=== PATIENT | male | born 1945 | race Asian ===

== ENCOUNTER 2020-07-01 14:53 | Outpatient (REF) | payer MEDICARE, MEDICAID, SELFPAY | END 2020-07-01 14:54 | disposition home or self-care (01) | LOC: HO.HAP 14:53 | DX: Z46.1 Encounter for fitting and adjustment of hearing aid (principal) | CPT/HCPCS: 92593; 99499; V5266 ==

== ENCOUNTER 2021-05-20 15:43 | Outpatient (REF) | payer MEDICARE, MEDICAID, SELFPAY | END 2021-05-20 15:44 | disposition home or self-care (01) | LOC: HO.HAP 15:43 | PROVIDERS: Visit Provider Hospitalist | DX: Z46.1 Encounter for fitting and adjustment of hearing aid (principal); H90.3 Sensorineural hearing loss, bilateral | CPT/HCPCS: 92593; V5266 ==

== ENCOUNTER 2021-07-08 15:10 | Outpatient (REF) | payer MEDICARE, MEDICAID, SELFPAY ==
--- NOTE | 2021-07-08 16:57 | MHC.AU.AHA ---
Adult Audiological Evaluation Date of Visit: 07/08/21 Reason for Appointment: Audiological evaluation due to concern for decreased hearing. Mr. Salguero has a known bilateral, sensorineural hearing loss and uses hearing aids binaurally. He feels he's not hearing well with the hearing aids. He denies any significant changes to his medical history since his last visit. Previous Hearing Test Results: [facility] [place], 06/28/2017 - Mild sloping to severe sensorineural hearing loss bilaterally. 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 Worker: PhonEnval Model: Easel Learneo B50 Direct Serial Number: [id number] Battery Size: 13 Repair Warranty: 09/27/2019 Loss and Damage Warranty: 09/27/2019 Dispensed By: [facility] Date of Fittin07/06/2017 Hearing Instrument History- Left Ear: Maintenance And Repair Worker: Phonak Model: Easel Learneo B50 Direct Serial Number: [id number] Battery Size: 13 Warranty: 09/27/2019 Loss and Damage Warranty: 09/27/2019 Dispensed By: [facility] Date of Fittin07/06/2017 Otoscopy: Right Ear: Unremarkable Left Ear: Unremarkable Tympanometry: Tympanometry performed due to: To assess integrity of the middle ear system Right Ear: Normal Middle Ear System (Type A) Left Ear: Hypercompliant Middle Ear System (Type Ad) Hearing Evaluation: Transducer(s) Used: Insert Earphones, Bone Conduction Method: Conventional Audiometry Stimuli Used: Pure Tones Right Ear: Description of Hearing: Moderate sloping to severe sensorineural hearing loss from 250-8000 Hz. Left Ear: Description of Hearing: Moderate sloping to profound sensorineural hearing loss from 250-8000 Hz. Speech Recognition Threshold (SRT): Method Used: Monitored Live Voice Stimuli Used: Spondee Words Right Ear: 55 dBHL Left Ear: 50 dBHL Word Discrimination: Method: Recorded Lists Word Lists Used: PBK Right Ear: 84% at 90 dBHL Left Ear: 84% at 90 dBHL Comparison: Compared to the most recent evaluation: Thresholds have decreased bilaterally. Compared to most recent evaluation: 10-15 dBHL decrease in hearing from 250-4000 Hz bilaterally. Recommendations: Audiological re-evaluation in one year. Hearing aid(s) reprogrammed with updated test results. Diagnosis: Primary Diagnosis: H90.3 Bilateral Sensorineural Hearing Loss Services Performed: Comprehensive Audiological Evaluation (CPT 84513) Tympanometry (CPT 39756) Signature: Provider: Anabella Evans, CCC-A
== END 2021-07-08 15:11 | disposition home or self-care (01) ==
LOC: HO.SH 15:10
PROVIDERS: Visit Provider Hospitalist
DX: Z46.1 Encounter for fitting and adjustment of hearing aid (principal); H90.3 Sensorineural hearing loss, bilateral
CPT/HCPCS: 92557; 92567; V5014

== ENCOUNTER 2021-12-30 13:15 | Outpatient (REF) | payer MEDICARE, MEDICAID, SELFPAY | END 2021-12-30 13:16 | disposition home or self-care (01) | LOC: HO.HAP 13:15 | PROVIDERS: Visit Provider Hospitalist | DX: Z46.1 Encounter for fitting and adjustment of hearing aid (principal); H90.3 Sensorineural hearing loss, bilateral | CPT/HCPCS: V5266 ==

== ENCOUNTER 2022-06-23 14:14 | Outpatient (REF) | payer MEDICARE, MEDICAID, SELFPAY | END 2022-06-23 14:15 | disposition home or self-care (01) | LOC: HO.HAP 14:14 | PROVIDERS: Visit Provider Internal Medicine | DX: Z46.1 Encounter for fitting and adjustment of hearing aid (principal); H90.3 Sensorineural hearing loss, bilateral | CPT/HCPCS: V5266 ==

== ENCOUNTER 2022-09-16 14:52 | Outpatient (REF) | payer MEDICARE, MEDICAID, SELFPAY ==
--- NOTE | 2022-09-16 16:41 | MHC.AU.MED ---
Medical Clearance for Hearing Instrumentation Date: 09/16/22 Patient Name: Cynthia Salgeuro Date of : 1945 Primary Care Provider: José Miguel Cadet MD We have seen your patient on 09/16/22 and have determined that they are a candidate for amplification (See accompanying report). Specifically, they would benefit from: Hearing aid use in both ears There is a statute that addresses Medical Evaluation Requirements prior to fitting a patient with a hearing aid. According to [place] statute 265 CMR:6.03(1), (a) General. Except as provided in 265 CMR 6.03(1)(b), a landscape gardener shall not sell a hearing aid unless the prospective user has presented to the landscape gardener a written statement signed by a licensed physician that states that the patient's hearing loss has been medically evaluated and the patient may be considered a candidate for a hearing aid. The medical evaluation must have taken place within the preceding six months. Please note: Due to the [place] Statute referenced above, we cannot accept a signature other than that of a licensed physician. QUALITATIVE FIELD PROJECT MANAGER and PA signatures cannot be accepted. I am in agreement with the above recommendation. There is no medical contraindication for hearing instrumentation. Physician Signature Date Physician Name (Printed)
--- NOTE | 2022-09-20 12:50 | MHC.AU.HA3 ---
Hearing Instrument Follow-Up- Binaural Date of Visit: 09/16/22 Right Ear: Orestes, , Color, Serial Number: Chip Ornelas [id number] SN: [id number] Color: White Upper Trimmer Repair Warranty: 09/27/2019 Upper Trimmer Loss and Damage Warranty: 09/27/2019 Battery Size: 13 Core Machine Operator/Slim Tube: 3xP Earmold/Dome/CShell/SlimTip:Medium power dome Type of Wax Guard: CeruStop Dispensed By: [facility] Date of Fittin07/06/2017 Left Ear: Orestes, , Color, Serial Number: Chip Parker0-Direct [id number] Color: White Upper Trimmer Repair Warranty: 09/27/2019 Upper Trimmer Loss and Damage Warranty: 09/27/2019 Battery Size: 13 Core Machine Operator/Slim Tube: 3xP Earmold/Dome/CShell/SlimTip: Medium power dome Type of Wax Guard: CeruStop Dispensed By: [facility] Date of Fittin07/06/2017 Follow-Up Summary: Dmitriy returned for routine hearing aid maintenance. His hearing aids were cleaned, microphones were vacuumed, and domes and wax guards were replaced. A listening check demonstrated that the hearing aids are in good working order. Recommendations: Hearing instrument maintenance in 6 months, or sooner if needed. Recommendations (Other): Consider trial with upgraded hearing aid technology due to age of current pair (see Hearing Aid Evaluation report) Diagnosis Code(s): Primary Diagnosis: H90.3 Bilateral Sensorineural Hearing Loss Signature: Provider: Thomas Cervantes, [facility]
--- NOTE | 2022-09-20 13:03 | MHC.AU.HA1 ---
Hearing Aid Evaluation Date of Visit: 09/16/22 Historical Information:Description of Hearing: Moderately-severe to profound sensorineural hearing loss, bilaterally Current personal amplification information: Phonak Audeo N17-Ywijen fit in June 2017 Summary: Dmitriy is ready to upgrade his hearing aid technology due to the age of his current pair. He has recently been wearing his hearing aids inconsistently due to a reported whistling from both hearing aids. He also does not successfully insert the hearing aids every time, often twisting the wire. Dmitriy reported that the sound quality has diminished and he feels as though the hearing aids are not working as optimally as they previously did. Dmitriy opted to stay with the RITE style hearing aid but in the rechargeable version. He was agreeable to adding a c-shell due to the severity of his hearing loss and to help with feedback and ease of insertion. Hearing Aid Prescription: Based on the individual?s shared listening needs, communication environments, dexterity, desire for connectivity, and personal preferences, the following prescription for amplification has been made: Right ear: Make, Model, Color: Phonak Audeo L70-R Color: Silver Worthy Battery Size: Rechargeable Personal Protection Specialist/Slim Tube: 3P Type of Earmold/Dome/CShell/SlimTip: c-shell Left ear: Left ear prescription to be same as Right Hearing Aid above: Make, Model, Color: Phonak Audeo L70-R Color: Silver Worthy Battery Size: Rechargeable Personal Protection Specialist/Slim Tube: 3P Type of Earmold/Dome/CShell/SlimTip: c-shell Plan of Care: Patient wishes to purchase hearing aids as prescribed Action Taken/Action Needed: Earmold Impressions Taken. Medical Clearance to be requested from PCP/ENT. Hearing Instrument Fitting to be scheduled when materials arrive Primary Diagnosis: H90.3 Bilateral Sensorineural Hearing Loss Signature: Provider: Thomas Cervantes, [facility]
== END 2022-09-16 14:53 | disposition home or self-care (01) ==
LOC: HO.SH 14:52
PROVIDERS: Visit Provider Hospitalist
DX: H90.3 Sensorineural hearing loss, bilateral (principal)
CPT/HCPCS: 92557; 92567; 92591; 92593; 99499; V5275

== ENCOUNTER 2022-11-09 14:25 | Outpatient (REF) | payer MEDICARE, MEDICAID, SELFPAY ==
--- NOTE | 2022-11-09 15:53 | MHC.AU.HA2 ---
Hearing Instrument Fitting- Adult- Binaural Date of Visit: 11/09/22 Hearing Instruments Dispensed: Right Ear: Orestes, Model, Color, Serial Number: Chip Ornelas L70-R SN: [id number] Color: Silver Worthy Commercial Fisher Repair Warranty: 01/22/2026 Commercial Fisher Loss and Damage Warranty: 01/22/2026 [facility] Service Plan: 11/10/2023 Battery Size: Rechargeable Flexible Shaft Winder/Slim Tube: 3P Earmold/Dome/CShell/SlimTip: c-shell Type of Wax Guard: CeruStop Left Ear: Orestes, Model, Color, Serial Number: Chip Ornelas L70-R SN: [id number] Color: Silver Worthy Commercial Fisher Repair Warranty: 01/22/2026 Commercial Fisher Loss and Damage Warranty: 01/22/2026 [facility] Service Plan: 11/10/2023 Battery Size: Rechargeable Flexible Shaft Winder/Slim Tube: 3P Earmold/Dome/CShell/SlimTip: c-shell Type of Wax Guard: CeruStop Accessories/Assistive Technology: Sheet Combining Operator SN: [id number] Summary of Fitting: Performed feedback trading manager and real ear measurements. Comfortable at real ear settings. Reviewed care, use, and rechargeability including manually turning on/off, volume control use, and changing wax guard. Practiced insertion and removal. Some difficulty fully inserting molds but will continue to practice. Instructed son on proper insertion depth by observing the green meat packer wire flush against the head as well as removal line at base of michael into canal. Did not connect to cell phone at this time as son reported he can help pair at home if Juliet wants the bluetooth connection. Recommendations: Patient does not feel follow-up is necessary at this time. Hearing Instrument maintenance in 6 months, or sooner if needed. Please call our clinic with any questions or concerns. Diagnosis Code(s): Primary Diagnosis: H90.3 Bilateral Sensorineural Hearing Loss Signature: Provider: Thomas Cervantes, [facility]
== END 2022-11-09 14:26 | disposition home or self-care (01) ==
LOC: HO.HAP 14:25
PROVIDERS: Visit Provider Hospitalist
DX: Z46.1 Encounter for fitting and adjustment of hearing aid (principal); H90.3 Sensorineural hearing loss, bilateral
CPT/HCPCS: V5011; V5020; V5160; V5261; V5264

== ENCOUNTER 2023-03-14 14:44 | Outpatient (REF) | payer MEDICARE, MEDICAID, SELFPAY | END 2023-03-14 14:45 | disposition home or self-care (01) | LOC: HO.HAP 14:44 | PROVIDERS: Visit Provider Hospitalist | DX: Z13.89 Encounter for screening for other disorder (principal) ==

== ENCOUNTER 2023-03-15 14:48 | Outpatient (REF) | payer MEDICARE, MEDICAID, SELFPAY | END 2023-03-15 14:49 | disposition home or self-care (01) | LOC: HO.HAP 14:48 | PROVIDERS: Visit Provider Hospitalist | DX: Z13.89 Encounter for screening for other disorder (principal) ==

== ENCOUNTER 2023-11-01 14:56 | Outpatient (REF) | payer MEDICARE, MEDICAID, SELFPAY | END 2023-11-01 14:57 | disposition home or self-care (01) | LOC: HO.HAP 14:56 | PROVIDERS: Visit Provider Hospitalist | DX: Z13.89 Encounter for screening for other disorder (principal) ==

== ENCOUNTER 2023-11-02 13:49 | Outpatient (REF) | payer MEDICARE, MEDICAID, SELFPAY | END 2023-11-02 13:50 | disposition home or self-care (01) | LOC: HO.HAP 13:49 | PROVIDERS: Visit Provider Hospitalist | DX: Z13.89 Encounter for screening for other disorder (principal) ==

== ENCOUNTER 2024-02-05 13:53 | Outpatient (REF) | payer MEDICARE, MEDICAID, SELFPAY ==
--- NOTE | 2024-02-06 10:46 | MHC.AU.HA3 ---
Hearing Instrument Follow-Up- Binaural Date of Visit: 02/06/24 Right Ear: Orestes, Model, Color, Serial Number: Chip Ornelas L70-R SN: [id number] Color: Silver Worthy Automotive Glass Installer Repair Warranty: 01/22/2026 Automotive Glass Installer Loss and Damage Warranty: 01/22/2026 [facility] Service Plan: 11/10/2023 Battery Size: Rechargeable Consumer Insights Specialist/Slim Tube: 3P Earmold/Dome/CShell/SlimTip:c-shell Type of Wax Guard: CeruStop Dispensed By: [facility] Date of Fittin11/09/2022 Left Ear: Orestes, Model, Color, Serial Number: Chip Ornelas L70-R SN: [id number] Color: Silver Worthy Automotive Glass Installer Repair Warranty: 01/22/2026 Automotive Glass Installer Loss and Damage Warranty: 01/22/2026 [facility] Service Plan: 11/10/2023 Battery Size: Rechargeable Consumer Insights Specialist/Slim Tube: 3P Earmold/Dome/CShell/SlimTip: c-shell Type of Wax Guard: CeruStop Dispensed By: [facility] Date of Fittin11/09/2022 Follow-Up Summary: Both hearing aids and c-shells dropped off 02/05/2024 reporting static/distorted. Initial listening check demonstrated hearing aids amplifying clearly. Wax guards slightly occluded with vents fully occluded. Cleaned hearing aids and c-shells. Replaced wax guards. Vacuumed microphones. Ran through dehumidifier. No static/distortion noted. Recommendations: If issue persists, an appointment should be scheduled to readdress Cynthia's concerns. Diagnosis Code(s): Primary Diagnosis: H90.3 Bilateral Sensorineural Hearing Loss Signature: Provider: Thomas Cervantes, [facility]
== END 2024-02-05 13:54 | disposition home or self-care (01) ==
LOC: HO.HAP 13:53
PROVIDERS: Visit Provider Hospitalist
DX: Z13.89 Encounter for screening for other disorder (principal)

== ENCOUNTER 2024-02-06 14:35 | Outpatient (REF) | payer MEDICARE, MEDICAID, SELFPAY | END 2024-02-06 14:36 | disposition home or self-care (01) | LOC: HO.HAP 14:35 | PROVIDERS: Visit Provider Hospitalist | DX: Z46.1 Encounter for fitting and adjustment of hearing aid (principal); H90.3 Sensorineural hearing loss, bilateral | CPT/HCPCS: 92593; 99499 ==

== ENCOUNTER 2024-04-01 11:23 | Outpatient (REF) | payer MEDICARE, MEDICAID, SELFPAY ==
--- NOTE | 2024-04-02 12:34 | MHC.AU.HA3 ---
Hearing Instrument Follow-Up- Binaural Date of Visit: 04/01/24 Right Ear: Orestes, Model, Color, Serial Number: Chip Ornelas L70-R SN: [id number] Color: Silver Worthy Tank Officer Repair Warranty: 01/22/2026 Tank Officer Loss and Damage Warranty: 01/22/2026 [facility] Service Plan: 11/10/2023 Battery Size: Rechargeable Ethnographer/Slim Tube: 3P Earmold/Dome/CShell/SlimTip:c-shell Type of Wax Guard: CeruStop Dispensed By: [facility] Date of Fittin11/09/2022 Left Ear: Orestes, Model, Color, Serial Number: Chip Ornelas L70-R SN: [id number] Color: Silver Worthy Tank Officer Repair Warranty: 01/22/2026 Tank Officer Loss and Damage Warranty: 01/22/2026 [facility] Service Plan: 11/10/2023 Battery Size: Rechargeable Ethnographer/Slim Tube: 3P Earmold/Dome/CShell/SlimTip: c-shell Type of Wax Guard: CeruStop Dispensed By: [facility] Date of Fittin11/09/2022 Follow-Up Summary: Aids dropped off, . Found wax guards clogged. Cleaned aids, cleaned earmolds, replaced wax guards. Listening check positive after cleaning. Recommendations: Recommendations: Hearing instrument follow-up or maintenance as needed. Diagnosis Code(s): Primary Diagnosis: H90.3 Bilateral Sensorineural Hearing Loss Signature: Provider: Thomas Weaver, [facility]
== END 2024-04-01 11:24 | disposition home or self-care (01) ==
LOC: HO.HAP 11:23
PROVIDERS: Visit Provider Hospitalist
DX: Z13.89 Encounter for screening for other disorder (principal)

== ENCOUNTER 2024-04-02 14:30 | Outpatient (REF) | payer MEDICARE, MEDICAID, SELFPAY | END 2024-04-02 14:31 | disposition home or self-care (01) | LOC: HO.HAP 14:30 | PROVIDERS: Visit Provider Hospitalist | DX: Z46.1 Encounter for fitting and adjustment of hearing aid (principal); H90.3 Sensorineural hearing loss, bilateral | CPT/HCPCS: 92593; 99499 ==

== ENCOUNTER 2024-08-20 08:48 | Outpatient (REF) | payer MEDICARE, MEDICAID, SELFPAY ==
--- OUTSIDE RECORDS SUMMARY | 2024-08-20 08:54 | XMS_ITS | Patient Health Record ---
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 Role Phone NOE WEST Primary Care Provider [phone] Minal Barclay Unavailable [phone] Allergies No Known Allergies Results Component Value Reference Range Notes HEMOGLOBIN A1C Reviewed date:10/22/2023 04:23:54 PM Interpretation: Performing Lab:Testing performed or reported by [facility], a Service of [facility], [address] [place] [id number] Raad Anand MD, Assistant Wrestling Coach [facility]# [id number] Notes/Report: HEMOGLOBIN A1C 6.5 (4.0-5.6) % MONITORING: In known diabetic patients, hemoglobin A1c targets should be discussed with health care provider. DIAGNOSTIC USE: The [place] Diabetes Association (ADA) and the World Health Organization (WHO) recommend the use of HbA1c to diagnose diabetes using a threshold of 6.5%. Patients who have an HbA1c between 5.7% and 6.4% are considered at increased risk for developing diabetes in the future. CAUTION: Falsely low HbA1c results may be observed in patients with hemolytic anemia, homozygous forms of abnormal hemoglobin (e.g. SS, CC, SC), , recent blood loss or hemoglobin F greater than 7%. Fructosamine may be used as an alternate test in these cases. REFERENCE: ADA: Standards of Medical Care in Diabetes 2020, The Journal of Clinical and Applied Research and Education Volume 43, Supplement 1 QUANTIFERON 1 TUBE Reviewed date:10/19/2023 01:02:32 PM Interpretation: Performing Lab:Testing performed or reported by [facility], a Service of [facility], [address] [place] [id number] Raad Anand MD, Assistant Wrestling Coach CLIA# [id number] Notes/Report: QTB GOLD PLUS RESULT TEST NOT PERFORMED Test not performed,quantity insufficient (NOTE) TEST NOT PERFORMED = Quantity not sufficient. Reason For Referral No Information Medications Medication SIG (Take, Route, Frequency, Duration) Notes Start Date End Date Status Lisinopril 20 MG TAKE 1 TABLET BY MOUTH EVERY DAY for 90 days Active Colace 100 MG 1 capsule as needed Orally Once a day for 30 day(s) 05/20/2020 Active Albuterol Sulfate HFA 108 (90 Base) MCG/ACT INHALE 1 PUFF BY MOUTH EVERY 4 HOURS NEEDED for 30 Active amLODIPine Besylate 5 MG TAKE 1 TABLET B Y MOUTH EVERY DAY for 90 Active Mirtazapine 15 MG TAKE 1 TABLET BY MOUTH EVERY DAY AT BEDTIME FOR 30 DAYS for 90 Active Trelegy Ellipta 100-62.5-25 MCG/ACT 1 puff Inhalation Once a day for 30 days sample given 10/10/2023 Active Linzess 145 MCG TAKE 1 CAPSULE BY MOUTH AT LEAST 30 MINUTES BEFORE THE FIRST MEAL OF THE DAY ON AN EMPTY STOMACH for 30 Active Atorvastatin Calcium 80 MG 1 tablet Orally Once a day for 90 days Active amLODIPine Besylate 2.5 MG TAKE 1 TABLET BY MOUTH EVERY DAY for 90 Active Pantoprazole Sodium 40 MG TAKE 1 TABLET BY MOUTH TWICE A DAY for 90 Active Immunizations Vaccine Route Administration Date Status Comme nts COVID Unknown 09/29/2020 Administered 1st pfizer COVID Unknown 10/20/2020 Administered 2nd pfizer DTaP IM Intramuscular 05/07/2024 Administered Flublok 13949 IM Intramuscular 05/07/2024 Administered Problems Problem Type SNOMED Code ICD Code Onset Dates Problem Status W/U Status Risk Notes Problem Mixed hyperlipidemia (461329541) Mixed hyperlipidemia (E78.2) Active confirmed Problem Insomnia (335012090) Insomnia, unspecified (G47.00) Active confirmed Problem Conductive hearing loss (86522943) Conductive hearing loss, unspecified (H90.2) Active confirmed Problem Hearing loss (25835753) Unspecified hearing loss, unspecified ear (H91.90) Active confirmed Problem Essential hypertension (48182279) Essential (primary) hypertension (I10) Active confirmed Problem Chronic obstructive pulmonary disease (04349415) Chronic obstructive pulmonary disease, unspecified (J44.9) Active confirmed Problem Gastro-esophageal reflux disease without esophagitis (232452064) Gastro-esophageal reflux disease without esophagitis (K21.9) Active confirmed Problem Constipation (00325486) Constipation, unspecified (K59.00) Active confirmed Problem Nicotine dependence (52107160) Personal history of nicotine dependence (Z87.891) Active confirmed Vital Signs Heart Rate 67 /min 05/07/2024 Temperature 98.1 degrees Fahrenheit 05/07/2024 Blood pressure diastolic 80 mm Hg 05/07/2024 Oximetry 96 % 05/07/2024 Height 5'11 in 05/07/2024 Blood pressure systolic 134 mm Hg 05/07/2024 Weight 140.6 lbs 05/07/2024 BMI 19.61 kg/m2 05/07/2024 Encounters Encounter Location Date Provider Diagnosis [address] [address] 10/10/2023 NOE WEST Essential (primary) hypertension I10 ; Mixed hyperlipidemia E78.2 ; Chronic obstructive pulmonary disease, unspecified J44.9 and Impaired fasting glucose R73.[address] [address] 10/24/2023 NOE WEST Essential (primary) hypertension I10 ; Chronic obstructive pulmonary disease, unspecified J44.9 ; Mixed hyperlipidemia E78.2 ; Gastro-esophageal reflux disease without esophagitis K21.9 and Constipation, unspecified K59.[address] [address] 05/07/2024 Minal Barclay Encounter for genera l adult medical examination without abnormal findings Z00.00 ; Essential (primary) hypertension I10 ; Mixed hyperlipidemia E78.2 ; Chronic obstructive pulmonary disease, unspecified J44.9 ; Impaired fasting blood sugar R73.01 ; Fatigue, unspecified type R53.83 ; Encounter for screening for malignant neoplasm of prostate Z12.5 ; Encounter for screening for osteoporosis Z13.820 ; Insomnia, unspecified G47.00 and Encounter for immunization Z23 [address] [address] 10/02/2023 LIU GUL [address] [address] 10/13/2023 NOE WEST Contact with and (suspected) exposure to tuberculosis Z20.1 [facility] [address] [facility] [address] [place] [address] 10/19/2023 NOE WEST Contact with and (suspected) exposure to tuberculosis Z20.1 [facility] [address] [facility] [address] [place] [address] 05/08/2024 NOE CARPENTER Assessments Encounter Date Diagnosis (ICD Code) Assessment Notes Treatment Notes Treatment Clinical Notes Section Notes 10/10/2023 Mixed hyperlipidemia (ICD-10 - E78.2) Mr. Salguero is a 78-year-old gentleman with COPD and ex-smoker, acid reflux, hypertension here for for follow up. Plan is as follows: Hypertension. his blood pressure is high today and he also checks his blood pressure at home which is running high. He will continue on lisinopril 20 mg daily and amlodipine 5 mg daily and we added amlodipine 2.5 mg. Low-sodium diet recommended and follow-up in 2 weeks for blood pressure check Hyperlipidemia. Continue Atorvastatin 80 MG at night. GERD. Continue Pantoprazole 40 MG daily. COPD. He will stop Breo Ellipta inhaler for now. We will give him a trial of Trelegy Ellipta inhaler and observe. Continue Albuterol inhaler as needed. Impaired fasting glucose. Fasting sugars 116. Dietary restrictions, regimental exercise and weight loss advised. General health concerns discussed with patient. Scribe services used to formulate this note under HIPAA compliance and under [place] law mandated for scribe services. Patient aware of service. Verbal consent and written consent taken from the patient. Patient understands and verbalizes understanding of the scribes services and all questions answered regarding scribes services. Patient agrees to use of scribes services. 10/10/2023 Essential (primary) hypertension (ICD-10 - I10) Mr. Salguero is a 78-year-old gentleman with COPD and ex-smoker, acid reflux, hypertension here for for follow up. Plan is as follows: Hypertension. his blood pressure is high today and he also checks his blood pressure at home which is running high. He will continue on lisinopril 20 mg daily and amlodipine 5 mg daily and we added amlodipine 2.5 mg. Low-sodium diet recommended and follow-up in 2 weeks for blood pressure check Hyperlipidemia. Continue Atorvastatin 80 MG at night. GERD. Continue Pantoprazole 40 MG daily. COPD. He will stop Breo Ellipta inhaler for now. We will give him a trial of Trelegy Ellipta inhaler and observe. Continue Albuterol inhaler as needed. Impaired fasting glucose. Fasting sugars 116. Dietary restrictions, regimental exercise and weight loss advised. General health concerns discussed with patient. Scribe services used to formulate this note under HIPAA compliance and under [place] law mandated for scribe services. Patient aware of service. Verbal consent and written consent taken from the patient. Patient understands and verbalizes understanding of the scribes services and all questions answered regarding scribes services. Patient agrees to use of scribes services. 10/24/2023 Essential (primary) hypertension (ICD-10 - I10) Mr. Salguero is a 78-year-old gentleman with COPD and ex-smoker, acid reflux, hypertension here for for follow up. Plan is as follows: Hypertension. Blood pressure well controlled on current regimen. He will continue on lisinopril 20 mg daily and amlodipine 5 mg and 2.5 mg total 7.5 mg daily. Low-sodium diet recommended. Hyperlipidemia. Continue Atorvastatin 80 MG at night. GERD. Continue Pantoprazole 40 MG daily. COPD. We gave him a sample of Trelegy Ellipta 100/62.5 mg 1 puff daily i and observe. Continue Albuterol inhaler as needed. Constipation. Start Linzess 145 MCG once a day. General health concerns discussed with patient. Scribe services used to formulate this note under HIPAA compliance and under [place] law mandated for scribe services. Patient aware of service. Verbal consent and written consent taken from the patient. Patient understands and verbalizes understanding of the scribes services and all questions answered regarding scribes services. Patient agrees to use of scribes services. 10/24/2023 Chronic obstructive pulmonary disease, unspecified (ICD-10 - J44.9) Mr. Salguero is a 78-year-old gentleman with COPD and ex-smoker, acid reflux, hypertension here for for follow up. Plan is as follows: Hypertension. Blood pressure well controlled on current regimen. He will continue on lisinopril 20 mg daily and amlodipine 5 mg and 2.5 mg total 7.5 mg daily. Low-sodium diet recommended. Hyperlipidemia. Continue Atorvastatin 80 MG at night. GERD. Continue Pantoprazole 40 MG daily. COPD. We gave him a sample of Trelegy Ellipta 100/62.5 mg 1 puff daily i and observe. Continue Albuterol inhaler as needed. Constipation. Start Linzess 145 MCG once a day. General health concerns discussed with patient. Scribe services used to formulate this note under HIPAA compliance and under [place] law mandated for scribe services. Patient aware of service. Verbal consent and written consent taken from the patient. Patient understands and verbalizes understanding of the scribes services and all questions answered regarding scribes services. Patient agrees to use of scribes services. 10/13/2023 Contact with and (suspected) exposure to tuberculosis (ICD-10 - Z20.1) 10/19/2023 Contact with and (suspected) exposure to tuberculosis (ICD-10 - Z20.1) 05/07/2024 Encounter for general adult medical examination without abnormal findings (ICD-10 - Z00.00) Mr. Salguero is a 78-year-old gentleman with COPD and former smoker, acid reflux, hypertension here for annual physical examination. Plan is as follows: Hypertension. -Blood pressure well controlled on current regimen. He will continue on lisinopril 20 mg daily and amlodipine 5 mg and 2.5 mg total 7.5 mg daily. Low-sodium diet recommended. - EKG is done in the office today, HR 67, NSR. No ST elevation/depres shoaib. No BBB Hyperlipidemia. -Continue Atorvastatin 80 MG at night. check lipid panel -GERD. -Continue Pantoprazole 40 MG daily. COPD. -Continue on Trelegy Ellipta 100/62.5 mg 1 puff daily i and observe. Continue Albuterol inhaler as needed. Constipation. -Continue on Linzess 145 MCG once a day Impaired fasting glucose: - A1c of 6.5. Advised on diet modification and exercising. Check a1c Fatigue: - He has been feeling fatigued for the past couple of months. We will check CBC, iron studies, TSH, vitamin D, B12 and folate. Insomnia: - He has trouble initiating and maintain sleep. Started patient on low dose Mirtazapine. PHQ-9 of 7 due to feeling fatigued and trouble with sleep. Screening for prostate cancer: - Ordered PSA Screening for Osteoporosis - DEXA Vision: Regular Hearing: Has hearing aids. Had his annual CT scan done Flu and TDAP shot are given today. Recommended Pneumo vax and RSV HCP is his son Joshua Olivera phone number is [phone], MOLST form is provided I have rendered the services for this patient under direct supervision of Dr. West, who did not see the patient but was available upon request 05/07/2024 Essential (primary) hypertension (ICD-10 - I10) Mr. Salguero is a 78-year-old gentleman with COPD and former smoker, acid reflux, hypertension here for annual physical examination. Plan is as follows: Hypertension. -Blood pressure well controlled on current regimen. He will continue on lisinopril 20 mg daily and amlodipine 5 mg and 2.5 mg total 7.5 mg daily. Low-sodium diet recommended. - EKG is done in the office today, HR 67, NSR. No ST elevation/depres shoaib. No BBB Hyperlipidemia. -Continue Atorvastatin 80 MG at night. check lipid panel -GERD. -Continue Pantoprazole 40 MG daily. COPD. -Continue on Trelegy Ellipta 100/62.5 mg 1 puff daily i and observe. Continue Albuterol inhaler as needed. Constipation. -Continue on Linzess 145 MCG once a day Impaired fasting glucose: - A1c of 6.5. Advised on diet modification and exercising. Check a1c Fatigue: - He has been feeling fatigued for the past couple of months. We will check CBC, iron studies, TSH, vitamin D, B12 and folate. Insomnia: - He has trouble initiating and maintain sleep. Started patient on low dose Mirtazapine. PHQ-9 of 7 due to feeling fatigued and trouble with sleep. Screening for prostate cancer: - Ordered PSA Screening for Osteoporosis - DEXA Vision: Regular Hearing: Has hearing aids. Had his annual CT scan done Flu and TDAP shot are given today. Recommended Pneumo vax and RSV HCP is his son Joshua Olivera phone number is [phone], MOLST form is provided I have rendered the services for this patient under direct supervision of Dr. West, who did not see the patient but was available upon request 10/24/2023 Mixed hyperlipidemia (ICD-10 - E78.2) Mr. Salguero is a 78-year-old gentleman with COPD and ex-smoker, acid reflux, hypertension here for for follow up. Plan is as follows: Hypertension. Blood pressure well controlled on current regimen. He will continue on lisinopril 20 mg daily and amlodipine 5 mg and 2.5 mg total 7.5 mg daily. Low-sodium diet recommended. Hyperlipidemia. Continue Atorvastatin 80 MG at night. GERD. Continue Pantoprazole 40 MG daily. COPD. We gave him a sample of Trelegy Ellipta 100/62.5 mg 1 puff daily i and observe. Continue Albuterol inhaler as needed. Constipation. Start Linzess 145 MCG once a day. General health concerns discussed with patient. Scribe services used to formulate this note under HIPAA compliance and under [place] law mandated for scribe services. Patient aware of service. Verbal consent and written consent taken from the patient. Patient understands and verbalizes understanding of the scribes services and all questions answered regarding scribes services. Patient agrees to use of scribes services. 10/10/2023 Chronic obstructive pulmonary disease, unspecified (ICD-10 - J44.9) Mr. Salguero is a 78-year-old gentleman with COPD and ex-smoker, acid reflux, hypertension here for for follow up. Plan is as follows: Hypertension. his blood pressure is high today and he also checks his blood pressure at home which is running high. He will continue on lisinopril 20 mg daily and amlodipine 5 mg daily and we added amlodipine 2.5 mg. Low-sodium diet recommended and follow-up in 2 weeks for blood pressure check Hyperlipidemia. Continue Atorvastatin 80 MG at night. GERD. Continue Pantoprazole 40 MG daily. COPD. He will stop Breo Ellipta inhaler for now. We will give him a trial of Trelegy Ellipta inhaler and observe. Continue Albuterol inhaler as needed. Impaired fasting glucose. Fasting sugars 116. Dietary restrictions, regimental exercise and weight loss advised. General health concerns discussed with patient. Scribe services used to formulate this note under HIPAA compliance and under [place] law mandated for scribe services. Patient aware of service. Verbal consent and written consent taken from the patient. Patient understands and verbalizes understanding of the scribes services and all questions answered regarding scribes services. Patient agrees to use of scribes services. 10/10/2023 Impaired fasting glucose (ICD-10 - R73.01) Mr. Salguero is a 78-year-old gentleman with COPD and ex-smoker, acid reflux, hypertension here for for follow up. Plan is as follows: Hypertension. his blood pressure is high today and he also checks his blood pressure at home which is running high. He will continue on lisinopril 20 mg daily and amlodipine 5 mg daily and we added amlodipine 2.5 mg. Low-sodium diet recommended and follow-up in 2 weeks for blood pressure check Hyperlipidemia. Continue Atorvastatin 80 MG at night. GERD. Continue Pantoprazole 40 MG daily. COPD. He will stop Breo Ellipta inhaler for now. We will give him a trial of Trelegy Ellipta inhaler and observe. Continue Albuterol inhaler as needed. Impaired fasting glucose. Fasting sugars 116. Dietary restrictions, regimental exercise and weight loss advised. General health concerns discussed with patient. Scribe services used to formulate this note under HIPAA compliance and under [place] law mandated for scribe services. Patient aware of service. Verbal consent and written consent taken from the patient. Patient understands and verbalizes understanding of the scribes services and all questions answered regarding scribes services. Patient agrees to use of scribes services. 05/07/2024 Mixed hyperlipidemia (ICD-10 - E78.2) Mr. Salguero is a 78-year-old gentleman with COPD and former smoker, acid reflux, hypertension here for annual physical examination. Plan is as follows: Hypertension. -Blood pressure well controlled on current regimen. He will continue on lisinopril 20 mg daily and amlodipine 5 mg and 2.5 mg total 7.5 mg daily. Low-sodium diet recommended. - EKG is done in the office today, HR 67, NSR. No ST elevation/depres shoaib. No BBB Hyperlipidemia. -Continue Atorvastatin 80 MG at night. check lipid panel -GERD. -Continue Pantoprazole 40 MG daily. COPD. -Continue on Trelegy Ellipta 100/62.5 mg 1 puff daily i and observe. Continue Albuterol inhaler as needed. Constipation. -Continue on Linzess 145 MCG once a day Impaired fasting glucose: - A1c of 6.5. Advised on diet modification and exercising. Check a1c Fatigue: - He has been feeling fatigued for the past couple of months. We will check CBC, iron studies, TSH, vitamin D, B12 and folate. Insomnia: - He has trouble initiating and maintain sleep. Started patient on low dose Mirtazapine. PHQ-9 of 7 due to feeling fatigued and trouble with sleep. Screening for prostate cancer: - Ordered PSA Screening for Osteoporosis - DEXA Vision: Regular Hearing: Has hearing aids. Had his annual CT scan done Flu and TDAP shot are given today. Recommended Pneumo vax and RSV HCP is his son Joshua Olivera phone number is [phone], MOLST form is provided I have rendered the services for this patient under direct supervision of Dr. West, who did not see the patient but was available upon request 10/24/2023 Gastro-esophageal reflux disease without esophagitis (ICD-10 - K21.9) Mr. Salguero is a 78-year-old gentleman with COPD and ex-smoker, acid reflux, hypertension here for for follow up. Plan is as follows: Hypertension. Blood pressure well controlled on current regimen. He will continue on lisinopril 20 mg daily and amlodipine 5 mg and 2.5 mg total 7.5 mg daily. Low-sodium diet recommended. Hyperlipidemia. Continue Atorvastatin 80 MG at night. GERD. Continue Pantoprazole 40 MG daily. COPD. We gave him a sample of Trelegy Ellipta 100/62.5 mg 1 puff daily i and observe. Continue Albuterol inhaler as needed. Constipation. Start Linzess 145 MCG once a day. General health concerns discussed with patient. Scribe services used to formulate this note under HIPAA compliance and under [place] law mandated for scribe services. Patient aware of service. Verbal consent and written consent taken from the patient. Patient understands and verbalizes understanding of the scribes services and all questions answered regarding scribes services. Patient agrees to use of scribes services. 05/07/2024 Chronic obstructive pulmonary disease, unspecified (ICD-10 - J44.9) Mr. Salguero is a 78-year-old gentleman with COPD and former smoker, acid reflux, hypertension here for annual physical examination. Plan is as follows: Hypertension. -Blood pressure well controlled on current regimen. He will continue on lisinopril 20 mg daily and amlodipine 5 mg and 2.5 mg total 7.5 mg daily. Low-sodium diet recommended. - EKG is done in the office today, HR 67, NSR. No ST elevation/depres shoaib. No BBB Hyperlipidemia. -Continue Atorvastatin 80 MG at night. check lipid panel -GERD. -Continue Pantoprazole 40 MG daily. COPD. -Continue on Trelegy Ellipta 100/62.5 mg 1 puff daily i and observe. Continue Albuterol inhaler as needed. Constipation. -Continue on Linzess 145 MCG once a day Impaired fasting glucose: - A1c of 6.5. Advised on diet modification and exercising. Check a1c Fatigue: - He has been feeling fatigued for the past couple of months. We will check CBC, iron studies, TSH, vitamin D, B12 and folate. Insomnia: - He has trouble initiating and maintain sleep. Started patient on low dose Mirtazapine. PHQ-9 of 7 due to feeling fatigued and trouble with sleep. Screening for prostate cancer: - Ordered PSA Screening for Osteoporosis - DEXA Vision: Regular Hearing: Has hearing aids. Had his annual CT scan done Flu and TDAP shot are given today. Recommended Pneumo vax and RSV HCP is his son Joshua Olivera phone number is [phone], MOLST form is provided I have rendered the services for this patient under direct supervision of Dr. West, who did not see the patient but was available upon request 10/24/2023 Constipation, unspecified (ICD-10 - K59.00) Mr. Salguero is a 78-year-old gentleman with COPD and ex-smoker, acid reflux, hypertension here for for follow up. Plan is as follows: Hypertension. Blood pressure well controlled on current regimen. He will continue on lisinopril 20 mg daily and amlodipine 5 mg and 2.5 mg total 7.5 mg daily. Low-sodium diet recommended. Hyperlipidemia. Continue Atorvastatin 80 MG at night. GERD. Continue Pantoprazole 40 MG daily. COPD. We gave him a sample of Trelegy Ellipta 100/62.5 mg 1 puff daily i and observe. Continue Albuterol inhaler as needed. Constipation. Start Linzess 145 MCG once a day. General health concerns discussed with patient. Scribe services used to formulate this note under HIPAA compliance and under [place] law mandated for scribe services. Patient aware of service. Verbal consent and written consent taken from the patient. Patient understands and verbalizes understanding of the scribes services and all questions answered regarding scribes services. Patient agrees to use of scribes services. 05/07/2024 Impaired fasting blood sugar (ICD-10 - R73.01) Mr. Salguero is a 78-year-old gentleman with COPD and former smoker, acid reflux, hypertension here for annual physical examination. Plan is as follows: Hypertension. -Blood pressure well controlled on current regimen. He will continue on lisinopril 20 mg daily and amlodipine 5 mg and 2.5 mg total 7.5 mg daily. Low-sodium diet recommended. - EKG is done in the office today, HR 67, NSR. No ST elevation/depres shoaib. No BBB Hyperlipidemia. -Continue Atorvastatin 80 MG at night. check lipid panel -GERD. -Continue Pantoprazole 40 MG daily. COPD. -Continue on Trelegy Ellipta 100/62.5 mg 1 puff daily i and observe. Continue Albuterol inhaler as needed. Constipation. -Continue on Linzess 145 MCG once a day Impaired fasting glucose: - A1c of 6.5. Advised on diet modification and exercising. Check a1c Fatigue: - He has been feeling fatigued for the past couple of months. We will check CBC, iron studies, TSH, vitamin D, B12 and folate. Insomnia: - He has trouble initiating and maintain sleep. Started patient on low dose Mirtazapine. PHQ-9 of 7 due to feeling fatigued and trouble with sleep. Screening for prostate cancer: - Ordered PSA Screening for Osteoporosis - DEXA Vision: Regular Hearing: Has hearing aids. Had his annual CT scan done Flu and TDAP shot are given today. Recommended Pneumo vax and RSV HCP is his son Joshua Olivera phone number is [phone], MOLST form is provided I have rendered the services for this patient under direct supervision of Dr. West, who did not see the patient but was available upon request 05/07/2024 Fatigue, unspecified type (ICD-10 - R53.83) Mr. Salguero is a 78-year-old gentleman with COPD and former smoker, acid reflux, hypertension here for annual physical examination. Plan is as follows: Hypertension. -Blood pressure well controlled on current regimen. He will continue on lisinopril 20 mg daily and amlodipine 5 mg and 2.5 mg total 7.5 mg daily. Low-sodium diet recommended. - EKG is done in the office today, HR 67, NSR. No ST elevation/depres shoaib. No BBB Hyperlipidemia. -Continue Atorvastatin 80 MG at night. check lipid panel -GERD. -Continue Pantoprazole 40 MG daily. COPD. -Continue on Trelegy Ellipta 100/62.5 mg 1 puff daily i and observe. Continue Albuterol inhaler as needed. Constipation. -Continue on Linzess 145 MCG once a day Impaired fasting glucose: - A1c of 6.5. Advised on diet modification and exercising. Check a1c Fatigue: - He has been feeling fatigued for the past couple of months. We will check CBC, iron studies, TSH, vitamin D, B12 and folate. Insomnia: - He has trouble initiating and maintain sleep. Started patient on low dose Mirtazapine. PHQ-9 of 7 due to feeling fatigued and trouble with sleep. Screening for prostate cancer: - Ordered PSA Screening for Osteoporosis - DEXA Vision: Regular Hearing: Has hearing aids. Had his annual CT scan done Flu and TDAP shot are given today. Recommended Pneumo vax and RSV HCP is his son Joshua Olivera phone number is [phone], MOLST form is provided I have rendered the services for this patient under direct supervision of Dr. West, who did not see the patient but was available upon request 05/07/2024 Encounter for screening for malignant neoplasm of prostate (ICD-10 - Z12.5) Mr. Salguero is a 78-year-old gentleman with COPD and former smoker, acid reflux, hypertension here for annual physical examination. Plan is as follows: Hypertension. -Blood pressure well controlled on current regimen. He will continue on lisinopril 20 mg daily and amlodipine 5 mg and 2.5 mg total 7.5 mg daily. Low-sodium diet recommended. - EKG is done in the office today, HR 67, NSR. No ST elevation/depres shoaib. No BBB Hyperlipidemia. -Continue Atorvastatin 80 MG at night. check lipid panel -GERD. -Continue Pantoprazole 40 MG daily. COPD. -Continue on Trelegy Ellipta 100/62.5 mg 1 puff daily i and observe. Continue Albuterol inhaler as needed. Constipation. -Continue on Linzess 145 MCG once a day Impaired fasting glucose: - A1c of 6.5. Advised on diet modification and exercising. Check a1c Fatigue: - He has been feeling fatigued for the past couple of months. We will check CBC, iron studies, TSH, vitamin D, B12 and folate. Insomnia: - He has trouble initiating and maintain sleep. Started patient on low dose Mirtazapine. PHQ-9 of 7 due to feeling fatigued and trouble with sleep. Screening for prostate cancer: - Ordered PSA Screening for Osteoporosis - DEXA Vision: Regular Hearing: Has hearing aids. Had his annual CT scan done Flu and TDAP shot are given today. Recommended Pneumo vax and RSV HCP is his son Joshua Olivera phone number is [phone], MOLST form is provided I have rendered the services for this patient under direct supervision of Dr. West, who did not see the patient but was available upon request 05/07/2024 Encounter for screening for osteoporosis (ICD-10 - Z13.820) Mr. Salguero is a 78-year-old gentleman with COPD and former smoker, acid reflux, hypertension here for annual physical examination. Plan is as follows: Hypertension. -Blood pressure well controlled on current regimen. He will continue on lisinopril 20 mg daily and amlodipine 5 mg and 2.5 mg total 7.5 mg daily. Low-sodium diet recommended. - EKG is done in the office today, HR 67, NSR. No ST elevation/depres shoaib. No BBB Hyperlipidemia. -Continue Atorvastatin 80 MG at night. check lipid panel -GERD. -Continue Pantoprazole 40 MG daily. COPD. -Continue on Trelegy Ellipta 100/62.5 mg 1 puff daily i and observe. Continue Albuterol inhaler as needed. Constipation. -Continue on Linzess 145 MCG once a day Impaired fasting glucose: - A1c of 6.5. Advised on diet modification and exercising. Check a1c Fatigue: - He has been feeling fatigued for the past couple of months. We will check CBC, iron studies, TSH, vitamin D, B12 and folate. Insomnia: - He has trouble initiating and maintain sleep. Started patient on low dose Mirtazapine. PHQ-9 of 7 due to feeling fatigued and trouble with sleep. Screening for prostate cancer: - Ordered PSA Screening for Osteoporosis - DEXA Vision: Regular Hearing: Has hearing aids. Had his annual CT scan done Flu and TDAP shot are given today. Recommended Pneumo vax and RSV HCP is his son Joshua Olivera phone number is [phone], MOLST form is provided I have rendered the services for this patient under direct supervision of Dr. West, who did not see the patient but was available upon request 05/07/2024 Insomnia, unspecified (ICD-10 - G47.00) Mr. Salguero is a 78-year-old gentleman with COPD and former smoker, acid reflux, hypertension here for annual physical examination. Plan is as follows: Hypertension. -Blood pressure well controlled on current regimen. He will continue on lisinopril 20 mg daily and amlodipine 5 mg and 2.5 mg total 7.5 mg daily. Low-sodium diet recommended. - EKG is done in the office today, HR 67, NSR. No ST elevation/depres shoaib. No BBB Hyperlipidemia. -Continue Atorvastatin 80 MG at night. check lipid panel -GERD. -Continue Pantoprazole 40 MG daily. COPD. -Continue on Trelegy Ellipta 100/62.5 mg 1 puff daily i and observe. Continue Albuterol inhaler as needed. Constipation. -Continue on Linzess 145 MCG once a day Impaired fasting glucose: - A1c of 6.5. Advised on diet modification and exercising. Check a1c Fatigue: - He has been feeling fatigued for the past couple of months. We will check CBC, iron studies, TSH, vitamin D, B12 and folate. Insomnia: - He has trouble initiating and maintain sleep. Started patient on low dose Mirtazapine. PHQ-9 of 7 due to feeling fatigued and trouble with sleep. Screening for prostate cancer: - Ordered PSA Screening for Osteoporosis - DEXA Vision: Regular Hearing: Has hearing aids. Had his annual CT scan done Flu and TDAP shot are given today. Recommended Pneumo vax and RSV HCP is his son Joshua Olivera phone number is [phone], MOLST form is provided I have rendered the services for this patient under direct supervision of Dr. West, who did not see the patient but was available upon request 05/07/2024 Encounter for immunization (ICD-10 - Z23) Mr. Salguero is a 78-year-old gentleman with COPD and former smoker, acid reflux, hypertension here for annual physical examination. Plan is as follows: Hypertension. -Blood pressure well controlled on current regimen. He will continue on lisinopril 20 mg daily and amlodipine 5 mg and 2.5 mg total 7.5 mg daily. Low-sodium diet recommended. - EKG is done in the office today, HR 67, NSR. No ST elevation/depres shoaib. No BBB Hyperlipidemia. -Continue Atorvastatin 80 MG at night. check lipid panel -GERD. -Continue Pantoprazole 40 MG daily. COPD. -Continue on Trelegy Ellipta 100/62.5 mg 1 puff daily i and observe. Continue Albuterol inhaler as needed. Constipation. -Continue on Linzess 145 MCG once a day Impaired fasting glucose: - A1c of 6.5. Advised on diet modification and exercising. Check a1c Fatigue: - He has been feeling fatigued for the past couple of months. We will check CBC, iron studies, TSH, vitamin D, B12 and folate. Insomnia: - He has trouble initiating and maintain sleep. Started patient on low dose Mirtazapine. PHQ-9 of 7 due to feeling fatigued and trouble with sleep. Screening for prostate cancer: - Ordered PSA Screening for Osteoporosis - DEXA Vision: Regular Hearing: Has hearing aids. Had his annual CT scan done Flu and TDAP shot are given today. Recommended Pneumo vax and RSV HCP is his son Joshua Olivera phone number is [phone], MOLST form is provided I have rendered the services for this patient under direct supervision of Dr. West, who did not see the patient but was available upon request Plan Of Treatment Pending Test Test Name Order Date DEXA 05/07/2024 CBC (COMPLETE BLOOD COUNT) WITH DIFF COMPREHENSIVE METABOLIC PANEL 04/07/2022 HEMOGLOBIN A1C 04/13/2023 LDH 04/07/2022 MAGNESIUM 04/07/2022 TSH WITH REFLEX TO FT4 04/07/2022 QUANTIFERON TB GOLD PLUS 10/19/2023 Vitamin B12 and Folate-[id number] 05/07/2024 Iron and TIBC-003723 05/07/2024 Hemoglobin J4x-[id number] 05/07/2024 Ferritin-[id number] 05/07/2024 Vitamin D, 78-Nlcjqfg-[id number] 05/07/2024 CBC/Differential (No Platelet)-[id number] Albumin/Creatinine Ratio,Urine-372520 Lipid Panel-[id number] 05/07/2024 Comp. Metabolic Panel [phone] PSA (Reflex To Free) (Serial)-[id number] Methylmalonic Acid, Serum-116321 024 Homocyst(e)ine-833583 05/07/2024 TSH+Free T4 05/07/2024 Next Appt Details Provider Name:LIU Susana JAYDENShaheen , 11/04/2024 01:00:00 PM, [address] [place] [address], [id number], Insurance Providers Payer Name Payer Address Payer Phone Subscriber Number Group Number Insured Name Patient Relationship to Insured Coverage Start Date Coverage End Date Medicare [address] [place] [id number] Noe Salguero Self - patient is the insured [employer] of [place] [address] [place] [phone] [id number] Noe Salguero Self - patient is the insured Medical (General) History Medical History History ICD Code glaucoma hypertension, benign hypercholesterolemia acid reflux asthma
--- OUTSIDE RECORDS SUMMARY | 2024-08-20 08:54 | XMS_ITS ---
Author Organization [facility] Address [address] [place] [address] [address] [facility] [place] [id number] Care Team Providers Care Frame Coverer Name Role Phone NOE WEST Primary Care Provider [phone] Allergies No Known Allergies REASON FOR VISIT 2 week BP Check Medications Medication SIG (Take, Route, Frequency, Duration) Notes Start Date End Date Status amLODIPine Besylate 5 MG TAKE 1 TABLET B Y MOUTH EVERY DAY for 90 Active Trelegy Ellipta 100-62.5-25 MCG/ACT 1 puff Inhalation Once a day for 30 days sample given 10/10/2023 Active Lisinopril 20 MG TAKE 1 TABLET BY MOUTH EVERY DAY for 90 Active Pantoprazole Sodium 40 MG TAKE 1 TABLET BY MOUTH TWICE A DAY for 90 Active Linzess 145 MCG TAKE 1 CAPSULE BY MOUTH AT LEAST 30 MINUTES BEFORE THE FIRST MEAL OF THE DAY ON AN EMPTY STOMACH for 30 Active Colace 100 MG 1 capsule as needed Orally Once a day for 30 day(s) 05/20/2020 Active Albuterol Sulfate HFA 108 (90 Base) MCG/ACT INHALE 1 PUFF BY MOUTH EVERY 4 HOURS NEEDED for 30 Active Atorvastatin Calcium 80 MG 1 tablet Orally Once a day for 90 days Active amLODIPine Besylate 2.5 MG TAKE 1 TABLET BY MOUTH EVERY DAY for 90 Active Vital Signs Temperature 97.1 degrees Fahrenheit 10/24/19 24 Oximetry 97 % 10/24/2023 Heart Rate 74 /min 10/24/2023 Blood pressure systolic 130 mm Hg 10/24/19 24 Blood pressure diastolic 60 mm Hg 024 Weight 138.4 lbs 10/24/2023 BMI 19.3 kg/m2 10/24/2023 Height 5'11 in 10/24/2023 Encounters Encounter Location Date Provider Diagnosis [facility] [address] [place] [address] 10/24/2023 NOE WEST Essential (primary) hypertension I10 ; Chronic obstructive pulmonary disease, unspecified J44.9 ; Mixed hyperlipidemia E78.2 ; Gastro-esophageal reflux disease without esophagitis K21.9 and Constipation, unspecified K59.00 Assessments Encounter Date Diagnosis (ICD Code) Assessment Notes Treatment Notes Treatment Clinical Notes Section Notes 10/24/2023 Essential (primary) hypertension (ICD-10 - I10) Mr. Méndez is a 78-year-old gentleman with COPD and [...] this note under HIPAA compliance and under [place] law mandated for scribe services. Patient aware of service. Verbal consent and written consent taken from the patient. Patient understands and verbalizes understanding of the scribes services and all questions answered regarding scribes services. Patient agrees to use of scribes services. 10/24/2023 Chronic obstructive pulmonary disease, unspecified (ICD-10 - J44.9) Mr. Méndez is a 78-year-old gentleman with COPD and [...] this note under HIPAA compliance and under [place] law mandated for scribe services. Patient aware of service. Verbal consent and written consent taken from the patient. Patient understands and verbalizes understanding of the scribes services and all questions answered regarding scribes services. Patient agrees to use of scribes services. 10/24/2023 Mixed hyperlipidemia (ICD-10 - E78.2) Mr. Méndez is a 78-year-old gentleman with COPD and [...] this note under HIPAA compliance and under [place] law mandated for scribe services. Patient aware of service. Verbal consent and written consent taken from the patient. Patient understands and verbalizes understanding of the scribes services and all questions answered regarding scribes services. Patient agrees to use of scribes services. 10/24/2023 Gastro-esophageal reflux disease without esophagitis (ICD-10 - K21.9) Mr. Méndez is a 78-year-old gentleman with COPD and [...] this note under HIPAA compliance and under [place] law mandated for scribe services. Patient aware of service. Verbal consent and written consent taken from the patient. Patient understands and verbalizes understanding of the scribes services and all questions answered regarding scribes services. Patient agrees to use of scribes services. 10/24/2023 Constipation, unspecified (ICD-10 - K59.00) Mr. Méndez is a 78-year-old gentleman with COPD and [...] this note under HIPAA compliance and under [place] law mandated for scribe services. Patient aware of service. Verbal consent and written consent taken from the patient. Patient understands and verbalizes understanding of the scribes services and all questions answered regarding scribes services. Patient agrees to use of scribes services. Plan Of Treatment Medication Medication Name Sig Start Date Stop Date Notes Pantoprazole Sodium 40 MG TAKE 1 TABLET BY MOUTH TWICE A DAY for 90 Linzess 145 MCG TAKE 1 CAPSULE BY [facility] AT LEAST 30 MINUTES BEFORE THE FIRST MEAL OF THE DAY ON AN EMPTY STOMACH for 30 Next Appt Details Follow Up: 6 Months, Reason: Provider Name:NOE WEST , 11/04/2024 01:00:00 PM, [address] [place] [address], [phone], Progress Notes * HONEY, MuTitaOB: [birth year] (78 yo M)Acc No.[id number]:10/24/2023 Progress Notes Patient:?Noe MÉNDEZ Provider:?NOE WEST MD :1945???Age:78 Y???Sex:Male Jori e:10/24/2023 Address: [id number] Subjective: * Chief Complaints: * ???2 week BP Check * HPI: ???Internal Medicine:? Mr. Méndez is a 78-year-old gentleman with COPD and ex-smoker, acid reflux, hypertension here for for follow up. He is physically active as much as possible. He lost 2 lbs since last visit. No history of fall. He does not need help with ADLs and IADLs. He sleeps well, appetite is good. No symptoms. He complains of constipation. He denies any other active issues or concerns. * ROS:?General/Constitutional:?Overall health?Good.?Change in appetite?denies.?Chills?denies.?Fever?denies.?Night sweats?denies.?Sleep disturbance?denies.?Weight gain?denies.?Weight loss?denies.?Neurologic:?Difficulty speaking?denies.?Dizziness?denies.?Gait abnormality?denies.?Headache?denies.?Loss of strength?denies.?Memory loss?denies.?Seizures?denies.?Tingling/Numbness?denies ?.?Ophthalmologic:?Blurred vision?denies.?Discharge?denies.?Dry eye?denies.?Red eye?denies.?ENT:?Change in Voice?Denies.?Cold Symptoms?Denies.?Cough?Denies.?Dizziness?Denies.?Nasal Congestion?Denies.?Otalgia?Denies.?postnasal drip?Denies.?Blocked ear?denies.?Nosebleed?denies.?Snoring?denies.?Cardiovascular:?Diaphoresis?Denies.?Pedal Edema?Denies.?PND (Paroxsymal nocturnal dyspnea)?Denies.?Chest pain?denies.?Difficulty laying flat?denies.?Dyspnea on exertion?denies.?Heart murmur?denies.?Orthopnea?denies.?Respiratory:?Snoring?denies.?Asthma?denies.?Cough?denies.?Shortness of breath with exertion?denies.?Sputum production?denies.?Wheezing?denies.?Gastrointestinal:?Change in bowel habits?denies.?Constipation?,admits.?Decreased appetite?denies.?Diarrhea?denies.?Heartburn?denies.?Nausea?denies.?Vomiting?mark es.?Musculoskeletal:?tingling/numbness?Denies.?myalgias?Denies.?Joint Swelling?Denies.?extremeties?normal.?Arthritis?denies.?Back problems?denies.?Carpal tunnel?denies.?Joint stiffness?denies.?Muscle aches?denies.?Endocrine:?Bowel Changes?Denies.?Breast Discharge?Denies.?poor libido?Denies.?Cold intolerance?denies.?Excessive sweating?denies.?Excessive thirst?denies.?Frequent urination?denies.?Thyroid problems?denies.?Skin:?Bruising?Denies.?Eczema?denies.?Hair changes?denies.?Rash?denies.?Skin lesion(s)?denies.?Psychiatric:?Anxiety?denies.?Depressed mood?denies.?Difficulty sleeping?denies.?Nervous breakdown?denies.?Substance abuse?denies.?Urology:?abnormal menstrual bleeding?denies.?blood in urine?denies.?burning on urination?denies.?difficulty urinating?denies.?discharge?denies.?dysuria?denies.? * Medical History:? * Surgical History:?Denies Pas t Surgical History * Hospitalization/Major Diagno stic Procedure:?Denies Past Hospitalization * Family History:?Non-Contribu tory.? * Social History:?Miscellaneous:?Exercise: Patient exercises. ?Living with: family. ?Marital status: . ?Occupation: Retired. * Medications:?TakingamLODIPin e Besylate 2.5 MG Tablet TAKE 1 TABLET BY MOUTH EVERY DAY Colace 100 MG Capsule 1 capsule as needed Orally Once a day Linzess 145 MCG Capsule TAKE 1 CAPSULE BY MOUTH AT LEAST 30 MINUTES BEFORE THE FIRST MEAL OF THE DAY ON AN EMPTY STOMACH Albuterol Sulfate HFA 108 (90 Base) MCG/ACT Aerosol Solution INHALE 1 PUFF BY MOUTH EVERY 4 HOURS NEEDED Atorvastatin Calcium 80 MG Tablet 1 tablet Orally Once a day Lisinopril 20 MG Tablet TAKE 1 TABLET BY MOUTH EVERY DAY Pantoprazole Sodium 40 MG Tablet Delayed Release TAKE 1 TABLET BY MOUTH TWICE A DAY amLODIPine Besylate 5 MG Tablet TAKE 1 TABLET BY MOUTH EVERY DAY Trelegy Ellipta 100-62.5-25 MCG/ACT Aerosol Powder Breath Activated 1 puff Inhalation Once a day , Notes to Pharmacist: sample givenTaking amLODIPine Besylate 2.5 MG Tablet TAKE 1 TABLET BY MOUTH EVERY DAY Taking Colace 100 MG Capsule 1 capsule as needed Orally Once a day Taking Linzess 145 MCG Capsule TAKE 1 CAPSULE BY MOUTH AT LEAST 30 MINUTES BEFORE THE FIRST MEAL OF THE DAY ON AN EMPTY STOMACH Taking Albuterol Sulfate HFA 108 (90 Base) MCG/ACT Aerosol Solution INHALE 1 PUFF BY MOUTH EVERY 4 HOURS NEEDED Taking Atorvastatin Calcium 80 MG Tablet 1 tablet Orally Once a day Taking Lisinopril 20 MG Tablet TAKE 1 TABLET BY MOUTH EVERY DAY Taking Pantoprazole Sodium 40 MG Tablet Delayed Release TAKE 1 TABLET BY MOUTH TWICE A DAY Taking amLODIPine Besylate 5 MG Tablet TAKE 1 TABLET BY MOUTH EVERY DAY Taking Trelegy Ellipta 100-62.5-25 MCG/ACT Aerosol Powder Breath Activated 1 puff Inhalation Once a day , Notes to Pharmacist: sample givenDiscontinuedAzithromycin 250 MG Tablet as directed Orally 2 tablets on the first day, then 1 tablet daily Albuterol Sulfate HFA 108 (90 Base) MCG/ACT Aerosol Solution 1 puff as needed Inhalation every 6 hrs Medication List reviewed and reconciled with the patientDiscontinued Azithromycin 250 MG Tablet as directed Orally 2 tablets on the first day, then 1 tablet daily Discontinued Albuterol Sulfate HFA 108 (90 Base) MCG/ACT Aerosol Solution 1 puff as needed Inhalation every 6 hrs Medication List reviewed and reconciled with the patient * Allergies:?N.K.D.A.no[Allerg ies Verified] Objective: * Vitals:?Temp: 97.1 F, Oxygen sat %: 97 %, HR: 74 /min, BP: 138/58 mm Hg, 130/60 mm Hg, Wt: 138.4 lbs, BMI: 19.3 Index, Ht: 5'11 . * Examination: ???General Examination: ?Psychiatry?Normal.?GENERAL APPEARANCE:?Well developed, well nourished, in no acute distress.?MUSCULOSKELETAL:?Normal.?HEAD:?Normocephalic, atraumatic.?EYES:?Pupils equal, round, reactive to light and accommodation, sclera non-icteric.?EARS:?Normal.?ORAL CAVITY:?Normal.?THROAT:?Clear.?OROPHARYNX?Normal.?SINUSES?Normal.?NECK/THYROID:?Neck supple, full range of motion, no cervical lymphadenopathy.?SKIN:?Warm and dry, no suspicious lesions.?HEART:?Normal.?LUNGS:?Normal.?BREASTS:?__.?ABDOMEN:?Soft, nontender, nondistended, bowel sounds present, normal.?EXTREMITIES:?Normal.?PERIPHERAL PULSES:?Normal.?NEUROLOGIC:?Nonfocal,? appropriate?motor strength normal upper and lower extremities, sensory exam intact.?FEMALE GENITOURINARY:?__.?MALE GENITOURINARY:?__.?PODIATRIC:?Normal.?Operations Chief? .? Assessment: * Assessment: 1.?Essential (primary) hyper tension - I10 (Primary)?2.?Chronic obstructive pulmonary disease, unspecified - J44.9?3.?Mixed hyperlipidemia - E78.2?4.?Gastro- esophageal reflux disease without esophagitis - K21.9?5.?Constipation, unspecified - K59.00? Mr. Méndez is a 78-year-old gentleman with COPD and ex-smoker, acid reflux, hypertension here for for follow up. Plan is as follows: Hypertension. Blood pressure well controlled on current regimen. He will continue on lisinopril 20 mg daily and amlodipine 5 mg and 2.5 mg total 7.5 mg daily. Low- sodium diet recommended. Hyperlipidemia. Continue Atorvastatin 80 MG at night. GERD. Continue Pantoprazole 40 MG daily. COPD. We gave him a sample of Trelegy Ellipta 100/62.5 mg 1 puff daily i and observe. Continue Albuterol inhaler as needed. Constipation. Start Linzess 145 MCG once a day. General health concerns discussed with patient. Scribe services used to formulate this note under HIPAA compliance and under [place] law mandated for scribe services. Patient aware of service. Verbal consent and written consent taken from the patient. Patient understands and verbalizes understanding of the scribes services and all questions answered regarding scribes services. Patient agrees to use of scribes services. Plan: * Treatment: * Procedure Codes:? * Follow Up:?6 Months * Images: * Sign off status: Completed true * Provider:?NOE WEST MD Date:?10/23 Generated for Shanel louis/Hermelinda/Nubia on:?08/20/2024 08:54 AM EST History and Physical Notes * HPI (History of Present Illness) Category Sub-Category Detail Notes Category Not es Internal Medicine Mr. Jaclyn perez is a 78-year-old gentleman with COPD and ex-smoker, acid reflux, hypertension here for for follow up. He is physically active as much as possible. He lost 2 lbs since last visit. No history of fall. He does not need help with ADLs and IADLs. He sleeps well, appetite is good. No symptoms. He complains of constipation. He denies any other active issues or concerns. Examination Category Sub-Category Detail Notes Category Not es General Examination GENERAL APPEARANCE: Well dev eloped, well nourished, in no acute distress HEAD: Normocephalic, atrau matic EYES: Pupils equal, round, reactive to light and accommodation, sclera non-icteric EARS: Normal THROAT: Clear NECK/THYROID: Neck supple, full ra nge of motion, no cervical lymphadenopathy HEART: Normal LUNGS: Normal ABDOMEN: Soft, nontender, non distended, bowel sounds present, normal NEUROLOGIC: Nonfocal, appropriat e motor strength normal upper and lower extremities, sensory exam intact SKIN: Warm and dry, no carlie picious lesions EXTREMITIES: Normal PERIPHERAL PULSES: Normal BREASTS: __ MUSCULOSKELETAL: Normal MALE GENITOURINARY: __ FEMALE GENITOURINARY: __ ORAL CAVITY: Normal PODIATRIC: Normal Psychiatry Normal OROPHARYNX Normal SINUSES Normal Operations Chief
--- OUTSIDE RECORDS SUMMARY | 2024-08-20 08:54 | XMS_ITS ---
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 Name Role Phone CYNTHIA WEST Primary Care Provider Minal Barclay Unavailable [phone] Allergies No Known Allergies REASON FOR VISIT AWV, Annual Wellness Visit, Subsequent Medications Medication SIG (Take, Route, Frequency, Duration) Notes Start Date End Date Status Lisinopril 20 MG TAKE 1 TABLET BY MOUTH EVERY DAY for 90 Active amLODIPine Besylate 5 MG TAKE 1 TABLET B Y MOUTH EVERY DAY for 90 Active Trelegy Ellipta 100-62.5-25 MCG/ACT 1 puff Inhalation Once a day for 30 days sample given 10/10/2023 Active Mirtazapine 15 MG 1 tablet at bedtime Orally Once a day for 30 days 05/07/2024 Active Pantoprazole Sodium 40 MG TAKE 1 TABLET BY MOUTH TWICE A DAY for 90 Active Atorvastatin Calcium 80 MG 1 tablet Orally Once a day for 90 days Active Colace 100 MG 1 capsule as needed Orally Once a day for 30 day(s) 05/20/2020 Active Albuterol Sulfate HFA 108 (90 Base) MCG/ACT INHALE 1 PUFF BY MOUTH EVERY 4 HOURS NEEDED for 30 Active Linzess 145 MCG TAKE 1 CAPSULE BY MOUTH AT LEAST 30 MINUTES BEFORE THE FIRST MEAL OF THE DAY ON AN EMPTY STOMACH for 30 Active amLODIPine Besylate 2.5 MG TAKE 1 TABLET BY MOUTH EVERY DAY for 90 Active Immunizations Vaccine Route Administration Date Status Comme nts Flublok 00296 IM Intramuscular 05/07/2024 Administered DTaP IM Intramuscular 05/07/2024 Administered Social History Tobacco Use: Social History Observation Description Date Details (start date - stop date) Never Smoker NA - NA Tobacco Use/Smoking Question Answer Notes Are you a nonsmoker Problems Problem Type SNOMED Code ICD Code Onset Dates Problem Status W/U Status Risk Notes Problem Insomnia (450629861) Insomnia, unspecified (G47.00) Active confirmed Vital Signs Temperature 98.1 degrees Fahrenheit 05/07/20 24 Oximetry 96 % 05/07/2024 Heart Rate 67 /min 05/07/2024 Blood pressure systolic 134 mm Hg 05/07/20 Blood pressure diastolic 80 mm Hg 024 Weight 140.6 lbs 05/07/2024 BMI 19.61 kg/m2 05/07/2024 Height 5'11 in 05/07/2024 Encounters Encounter Location Date Provider Diagnosis [facility] [address] [facility] [address] [place] [address] 05/07/2024 Minal Barclay Encounter for genera l [...] unspecified G47.00 and Encounter for immunization Z23 Assessments Encounter Date Diagnosis (ICD Code) Assessment Notes Treatment Notes Treatment Clinical Notes Section Notes 05/07/2024 Encounter for general adult medical examination without abnormal findings (ICD-10 - Z00.00) Mr. Méndez is a 78-year-old gentleman with [...] office today, HR 67, NSR. No ST elevation/depre ssion. No BBB Hyperlipidemia. -Continue Atorvastatin 80 MG [...] his son Joshua Olivera phone number is [phone], MOLST form is provided I have rendered [...] office today, HR 67, NSR. No ST elevation/depre ssion. No BBB Hyperlipidemia. -Continue Atorvastatin 80 MG [...] his son Joshua Olivera phone number is [phone], MOLST form is provided I have rendered the services for this patient under direct supervision of Dr. West, who did not see the patient but was available upon request 05/07/2024 Mixed hyperlipidemia (ICD-10 - E78.2) Mr. Méndez [...] office today, HR 67, NSR. No ST elevation/depre ssion. No BBB Hyperlipidemia. -Continue Atorvastatin 80 MG [...] his son Joshua Olivera phone number is [phone], MOLST form is provided I have rendered the services for this patient under direct supervision of Dr. West, who did not see the patient but was available upon request 05/07/2024 Chronic obstructive pulmonary disease, unspecified (ICD-10 [...] office today, HR 67, NSR. No ST elevation/depre ssion. No BBB Hyperlipidemia. -Continue Atorvastatin 80 MG [...] his son Joshua Olivera phone number is [phone], MOLST form is provided I have rendered the services for this patient under direct supervision of Dr. West, who did not see the patient but was available upon request 05/07/2024 Impaired fasting blood sugar (ICD-10 - R73.01) Mr. Méndez is a 78-year-old gentleman with [...] office today, HR 67, NSR. No ST elevation/depre ssion. No BBB Hyperlipidemia. -Continue Atorvastatin 80 MG [...] his son Joshua Olivera phone number is [phone], MOLST form is provided I have rendered the services for this patient under direct supervision of Dr. West, who did not see the patient but was available upon request 05/07/2024 Fatigue, unspecified type (ICD-10 - R53.83) Mr. Méndez is a 78-year-old gentleman with [...] office today, HR 67, NSR. No ST elevation/depre ssion. No BBB Hyperlipidemia. -Continue Atorvastatin 80 MG [...] his son Joshua Olivera phone number is [phone], MOLST form is provided I have rendered the services for this patient under direct supervision of Dr. West, who did not see the patient but was available upon request 05/07/2024 Encounter for screening for malignant neoplasm of prostate (ICD-10 - Z12.5) Mr. Méndez is a 78-year-old gentleman with [...] office today, HR 67, NSR. No ST elevation/depre ssion. No BBB Hyperlipidemia. -Continue Atorvastatin 80 MG [...] his son Joshua Olivera phone number is [phone], MOLST form is provided I have rendered the services for this patient under direct supervision of Dr. West, who did not see the patient but was available upon request 05/07/2024 Encounter for screening for osteoporosis (ICD-10 - Z13.820) Mr. Méndez is a 78-year-old gentleman with [...] office today, HR 67, NSR. No ST elevation/depre ssion. No BBB Hyperlipidemia. -Continue Atorvastatin 80 MG [...] his son Joshua Olivera phone number is [phone], MOLST form is provided I have rendered the services for this patient under direct supervision of Dr. West, who did not see the patient but was available upon request 05/07/2024 Insomnia, unspecified (ICD-10 - G47.00) Mr. Méndez is a 78-year-old gentleman with [...] office today, HR 67, NSR. No ST elevation/depre ssion. No BBB Hyperlipidemia. -Continue Atorvastatin 80 MG [...] his son Joshua Olivera phone number is [phone], MOLST form is provided I have rendered the services for this patient under direct supervision of Dr. West, who did not see the patient but was available upon request 05/07/2024 Encounter for immunization (ICD-10 - Z23) Mr. Méndez is a 78-year-old gentleman with [...] office today, HR 67, NSR. No ST elevation/depre ssion. No BBB Hyperlipidemia. -Continue Atorvastatin 80 MG [...] his son Joshua Olivera phone number is [phone], MOLST form is provided I have rendered the services for this patient under direct supervision of Dr. West, who did not see the patient but was available upon request Plan Of Treatment Medication Medication Name Sig Start Date Stop Date Notes Mirtazapine 15 MG 1 tablet at bedtime Orally Once a day for 30 days 05/07/2024 Pending Test Test Name Order Date DEXA 05/07/2024 Vitamin B12 and Folate-709297 05/07/2024 Iron and TIBC-574107 05/07/2024 Hemoglobin U2i-270666 05/07/2024 Ferritin-227433 05/07/2024 Vitamin D, 35-Razxoxy-913122 05/07/2024 CBC/Differential (No Platelet)-648882 Albumin/Creatinine Ratio,Urine-890620 Lipid Panel-046425 05/07/2024 Comp. Metabolic Panel [phone] 2023 PSA (Reflex To Free) (Serial)-192574 Methylmalonic Acid, Serum-845106 024 Homocyst(e)ine-480204 05/07/2024 TSH+Free T4 05/07/2024 Next Appt Details Follow Up: 6 Months-f/up, Re ason: Provider Name:CYNTHIA WEST , 11/04/2024 01:00:00 PM, [address] [place] [address], [place], [address], Progress Notes * Franky MÉNDEZOB: [birth year] (78 yo M)Acc No.[id number]:05/07/2024 Progress Note Patient:?Cynthia MÉNDEZ Provider:?Minal Barclay :1945???Age:78 Y???Sex:Male Jori e:05/07/2024 Address:[address] [place] [address] , [place] [facility] Pcp:CYNTHIA WEST Subjective: * Chief Complaints: * ???AWVAnnual Wellness Visit, Subsequent * HPI: ???Depression Screening:?PHQ-9?Little interest or pleasure in doing things?Not at all ?Feeling down, depressed, or hopeless?Not at all ?Trouble falling or staying asleep, or sleeping too much?More than half the days ?Feeling tired or having little energy?Nearly every day ?Poor appetite or overeating?More than half the days ?Feeling bad about yourself or that you are a failure, or have let yourself or your family down?Not at all ?Trouble concentrating on things, such as reading the newspaper or watching television?Not at all ?Moving or speaking so slowly that other people could have noticed; or the opposite, being so fidgety or restless that you have been moving around a lot more than usual?Not at all ?Thoughts that you would be better off or of hurting yourself in some way?Not at all ?Total Score?7 ?Interpretation?Mild Depression ???Internal Medicine:? Mr. Méndez is a 78-year-old gentleman with COPD former smoker, acid reflux, hypertension here for annual physical examination. Vision he follows with opthalm regularly. He has hearing aids. Memory is intact.He is physically active as much as possible. He gained 5 lbs since last visit. No history of fall. He does not need help with ADLs and IADLs. He sleeps well, appetite is good. No GI or symptoms. He states that he has been feeling fatigued for the past couple of months. He also endorses trouble with initiating and maintaining sleep. Tried Melatonin with no relief. He denies any other active issues or concerns. ???Patient Care Team:?-?No Providers on Record.?Medicare Annual Visit:?Type of Visit?-?Subsequent Annual Wellness Visit ?Language or Communication barrier addressed?-?Yes ?Health Risk Assessment?DEMOGRAPHICS?- ?- How old are [age]??[age] ?- How would you best describe your ethnicity??Non- White ?- How would you describe your marital status?- How would you describe your employment status??Retired ?- How many children do you have??more than five ?RISK ASSESSMENT?- ?- Do you currently use tobacco products??No ?- Have you ever used tobacco products??Yes, more than two years ago ?- What type of tobacco do you use or have you used??Cigarettes ?- (If cigarette smoker) How long have you smoked??>20 years ?- (If cigarette smoker) How many cigarettes do you smoke per day??11-20 ?- How many alcoholic beverages (i.e. 1oz hard liquor, one glass of wine, one bottle of beer) do you drink daily, on average??None ?- Have you ever felt the need to cut down on drinking??No ?- Have people annoyed you with criticism of your drinking??No ?- Do you or have you felt guilty for drinking??No ?- Have you ever felt the need to drink first thing in the morning to steady your nerves or to get rid of a hangover??No ?- How often do you exercise??Never ?- How vigorously can you exercise??Minimally ?- How often do you use seatbelts??Always ?- In the past month, how often have you had sex??__ ?- Do you have any significant difficulties or dysfunction during sex??No, never ?- How many partners do you have??__ ?- How often do you experience pain with sex??Never ?- How often do you use condoms during sex??Always ?MENTAL HEALTH ASSESSMENT?- ?- In the past two weeks, how often have you felt depressed, down or hopeless??Never ?- In the past month, how often have you felt anxious or stressed??Never ?- What is your average level of daily stress??None ?- In the past two weeks, how often have you felt a lack of pleasure or interest in doing things??Never ?- In the past two weeks, how often have you had difficulty falling asleep or episodes of sleeping too long??Never ?- In the past two weeks, how often have you had a lack of energy??Never ?- In the past two weeks, how often have you had feelings of being better off or thoughts of harming yourself??Never ?- Have you ever attempted to harm yourself??No ?GENERAL HEALTH/PAIN ASSESSMENT?- ?- In the past month, how often did you experience pain??Never ?- In the past month, how much has pain affected your ability to work??Not at all ?- In the past month, how much has pain affected your ability to walk??Not at all ?- In the past month, how much has pain affected your relationship with other people??Not at all ?- On a scale of 1-10, how bad would you rate your average daily pain??No pain ?- How would you describe the ease with which you can prepare your own food??Very easy ?- How would you describe the ease with which you can bathe or clean yourself??Very easy ?- How would you describe the ease with which you can dress yourself??Very easy ?- How hard is it to use the toilet by yourself??Not hard at all ?- How would you describe the ease with which you can do your own shopping??Very easy ?- How would you describe the ease with which you can get around your house??Very easy ?- How would you describe your ability to pay your bills??Very good ?- How would you describe your ability to plan your daily and monthly budgets??Very good ?- How would you describe your ability to do routine housework??Very good ?HOME SAFETY/ASSISTANCE?- ?- Do you feel like you are safe in your current home??Yes ?- How many times have you fallen in your home??Never ?- How much would you need to change your living circumstances to feel safe??Not at all ?- Do you feel that living somewhere else would be good for you??No ?- How much help do you feel you need at home??None at all ?- How much does your family help with daily or routine chores??Not at all ?Immunization Status addressed?-?Yes ?Depression Screening?-?PHQ9 done ?Vision Screening?-?Yes, patient sees regular rehab tech or production machine tender ?Hearing Screening?-?No ?Fall Risk and Home Safety?-?Negative, no falls in the past year, no difficulty walking, or getting out of bed or chair ?Medication evaluation and reconcilliation performed?Yes ?Vision screening recommended?Yes ?Literature offered to the patient?Yes ?Referrals?physical therapy offered for gait balance and mobility evaluation, fall prevention home evauation offered, DEXA screening offered ?Get Up and Go Evaluation?under 20 seconds ?Psychosocial Risks?-?No overt psychosocial risks shown, observed, or mentioned ?Behavioral Risks?-?Patient seems very well adjusted and no behavorial issues noted ?Activities of daily living?-?Not impaired ?Cognitive Screening?-?No overt cognitive deficiency is apparent by direct observation * ROS:?General/Constitutional:?Overall health?Good.?Change in appetite?denies.?Chills?denies.?Fatigue?admits.?Fever?denies.?Night sweats?denies.?Sleep disturbance?denies.?Weight gain?denies.?Weight loss?denies.?Neurologic:?Difficulty speaking?denies.?Dizziness?denies.?Gait abnormality?denies.?Headache?denies.?Loss of strength?denies.?Memory loss?denies.?Seizures?denies.?Tingling/Numbness?denies ?.?Ophthalmologic:?Blurred vision?denies.?Discharge?denies.?Dry eye?denies.?Red eye?denies.?ENT:?Change in Voice?Denies.?Cold Symptoms?Denies.?Cough?Denies.?Dizziness?Denies.?Nasal Congestion?Denies.?Otalgia?Denies.?postnasal drip?Denies.?Patient complaining of?decreased visual acuity in the left eye.?Blocked ear?denies.?Nosebleed?denies.?Snoring?denies.?Cardiovascular:?Diaphoresis?Denies.?Pedal Edema?Denies.?PND (Paroxsymal nocturnal dyspnea)?Denies.?Chest pain?denies.?Difficulty laying flat?denies.?Dyspnea on exertion?denies.?Heart murmur?denies.?Orthopnea?denies.?Respiratory:?Snoring?denies.?Asthma?denies.?Cough?denies.?Shortness of breath with exertion?denies.?Sputum production?denies.?Wheezing?denies.?Gastrointestinal:?Change in bowel habits?denies.?Constipation?,admits.?Decreased appetite?denies.?Diarrhea?denies.?Heartburn?denies.?Nausea?denies.?Vomiting?mark es.?Musculoskeletal:?tingling/numbness?Denies.?myalgias?Denies.?Joint Swelling?Denies.?extremeties?normal.?Arthritis?denies.?Back problems?denies.?Carpal tunnel?denies.?Joint stiffness?denies.?Muscle aches?denies.?Endocrine:?Bowel Changes?Denies.?Breast Discharge?Denies.?poor libido?Denies.?Cold intolerance?denies.?Excessive sweating?denies.?Excessive thirst?denies.?Frequent urination?denies.?Thyroid problems?denies.?Skin:?Bruising?Denies.?Eczema?denies.?Hair changes?denies.?Rash?denies.?Skin lesion(s)?denies.?Psychiatric:?Patient complaining of?insomnia.?Anxiety?denies.?Depressed mood?denies.?Difficulty sleeping?denies.?Nervous breakdown?denies.?Substance abuse?denies.?Urology:?blood in urine?denies.?burning on urination?denies.?difficulty urinating?denies.?discharge?denies.?dysuria?denies.? * Medical History:? * Surgical History:? * Hospitalization/Major Diagno stic Procedure:? * Social History:?Tobacco Use:?Tobacco Use/Smoking?Are you a?nonsmoker * Medications:?TakingPantopraz ole Sodium 40 MG Tablet Delayed Release TAKE 1 TABLET BY MOUTH TWICE A DAY Linzess 145 MCG Capsule TAKE 1 CAPSULE BY MOUTH AT LEAST 30 MINUTES BEFORE THE FIRST MEAL OF THE DAY ON AN EMPTY STOMACH amLODIPine Besylate 2.5 MG Tablet TAKE 1 TABLET BY MOUTH EVERY DAY Colace 100 MG Capsule 1 capsule as needed Orally Once a day Albuterol Sulfate HFA 108 (90 Base) MCG/ACT Aerosol Solution INHALE 1 PUFF BY MOUTH EVERY 4 HOURS NEEDED Atorvastatin Calcium 80 MG Tablet 1 tablet Orally Once a day Lisinopril 20 MG Tablet TAKE 1 TABLET BY MOUTH EVERY DAY amLODIPine Besylate 5 MG Tablet TAKE 1 TABLET BY MOUTH EVERY DAY Trelegy Ellipta 100-62.5-25 MCG/ACT Aerosol Powder Breath Activated 1 puff Inhalation Once a day , Notes to Pharmacist: sample givenMedication List reviewed and reconciled with the patientTaking Pantoprazole Sodium 40 MG Tablet Delayed Release TAKE 1 TABLET BY MOUTH TWICE A DAY Taking Linzess 145 MCG Capsule TAKE 1 CAPSULE BY MOUTH AT LEAST 30 MINUTES BEFORE THE FIRST MEAL OF THE DAY ON AN EMPTY STOMACH Taking amLODIPine Besylate 2.5 MG Tablet TAKE 1 TABLET BY MOUTH EVERY DAY Taking Colace 100 MG Capsule 1 capsule as needed Orally Once a day Taking Albuterol Sulfate HFA 108 (90 Base) MCG/ACT Aerosol Solution INHALE 1 PUFF BY MOUTH EVERY 4 HOURS NEEDED Taking Atorvastatin Calcium 80 MG Tablet 1 tablet Orally Once a day Taking Lisinopril 20 MG Tablet TAKE 1 TABLET BY MOUTH EVERY DAY Taking amLODIPine Besylate 5 MG Tablet TAKE 1 TABLET BY MOUTH EVERY DAY Taking Trelegy Ellipta 100-62.5-25 MCG/ACT Aerosol Powder Breath Activated 1 puff Inhalation Once a day , Notes to Pharmacist: sample givenMedication List reviewed and reconciled with the patient * Allergies:?N.K.D.A.no[Allerg ies Verified] Objective: * Vitals:?Temp: 98.1 F, Oxygen sat %: 96 %, HR: 67 /min, BP: 134/80 mm Hg, Wt: 140.6 lbs, BMI: 19.61 Index, Ht: 5'11 . * ???Past Orders: ???Lab:HEMOGLOBIN A1C (Order Date - 10/20/2023) (Collection Date & Time - 10/20/2023 03:00 PM) ? Value Reference Range ?HEMOGLOBIN A1C 6.5 H (4.0- 5.6) - % ???Lab:COMPREHENSIVE METABOL IC PANEL (Order Date - 04/12/2023) (Collection Date & Time - 04/12/2023 11:15 AM) ? Value Reference Range ?ALBUMIN 4.6 (3.4-4.8) - GM/DL ?ALK PHOS 59 (40-129) - U/L ?BILIRUBIN,TOTAL 0.6 (0-1 .2) - MG/DL ?CALCIUM 9.3 (8.6-10.5) - MG/DL ?BICARBONATE 22 (22-29) - MMOL/L ?CHLORIDE 107 (98-107) - MMOL/L ?EST GFR NON 71 - ML/MIN/1.73 M2 ?CREATININE 1.1 (0.7-1.2) - MG/DL ?ANION GAP 11 (4-17) - ?GLUCOSE 116 H (70-99) - MG /DL ?AST 24 (0-40) - U/L ?ALT 21 (0-41) - U/L ?POTASSIUM 4.4 (3.6-5.2) - MMOL/L ?SODIUM 140 (133-145) - MMOL/L ?TOTAL PROTEIN 6.9 (6.2-8 .2) - GM/DL ?BUN 13 (8-23) - MG/DL ?AG RATIO 2.0 - ???Lab:LIPID PANEL (Order Da te - 04/10/2023) (Collection Date & Time - 04/12/2023 11:15 AM) ? Value Reference Range ?LDL CHOLESTEROL, CALCULATED 60 (0-130) - MG/DL ?CHOLESTEROL, TOTAL 137 ( <200) - MG/DL ?HDL CHOL 53 (>39) - MG/ DL ?NON HDL CHOLESTEROL (CALC) 84 (<160) - MG/DL ?TRIGLYCERIDE 119 (<150) - MG/DL ???Lab:MICROALBUMIN, URINE ( Order Date - 04/10/2023) (Collection Date & Time - 04/12/2023 11:15 AM) ? Value Reference Range ?MICRO-ALBUMIN <12.0 (<20) - MG/L ?MALB/CREAT RATIO Unable to calculate (0-20) - MG/GM ?URINE CREAT FOR MICR O ALBUMIN 130.7 - MG/DL * Examination: ???General Examination: ?Psychiatry?Normal.?GENERAL APPEARANCE:?Well developed, well nourished, in no acute distress.?MUSCULOSKELETAL:?Normal.?HEAD:?Normocephalic, atraumatic.?EYES:?Pupils equal, round, reactive to light and accommodation, sclera non-icteric.?EARS:?Normal.?ORAL CAVITY:?Normal.?THROAT:?Clear.?OROPHARYNX?Normal.?SINUSES?Normal.?NECK/THYROID:?Neck supple, full range of motion, no cervical lymphadenopathy.?SKIN:?Warm and dry, no suspicious lesions.?HEART:?Normal.?LUNGS:?Normal.?BREASTS:?__.?ABDOMEN:?Soft, nontender, nondistended, bowel sounds present, normal.?EXTREMITIES:?Normal.?PERIPHERAL PULSES:?Normal.?NEUROLOGIC:?Nonfocal,? appropriate?motor strength normal upper and lower extremities, sensory exam intact.?FEMALE GENITOURINARY:?__.?MALE GENITOURINARY:?__.?PODIATRIC:?Normal.?Telesales Representative? .? Assessment: * Assessment: 1.?Encounter for general corbin lt medical examination without abnormal findings - Z00.00?2.?Essential (primary) hypertension - I10?3.?Mixed hyperlipidemia - E78.2?4.?Chronic obstructive pulmonary disease, unspecified - J44.9?5.?Impaired fasting blood sugar - R73.01?6.?Fatigue, unspecified type - R53.83?7.?Encounter for screening for malignant neoplasm of prostate - Z12.5?8.?Encounter for screening for osteoporosis - Z13.820?9.?Insomnia, unspecified - G47.00?10.?Encounter for immunization - Z23? Mr. Méndez is a 78-year-old gentleman with [...] office today, HR 67, NSR. No ST elevation/depression. No BBB Hyperlipidemia. -Continue Atorvastatin 80 MG [...] his son Joshua Olivera phone number is [phone], MOLST form is provided I have rendered the services for this patient under direct supervision of Dr. West, who did not see the patient but was available upon request. Plan: * Treatment: 2.?Mixed hyperlipidemia?LAB: Lipid Panel-640777 3.?Impaired fasting blood blanco gar?LAB: Hemoglobin G8i-720255 4.?Fatigue, unspecified type ?LAB: Vitamin B12 and Folate-206374 ?LAB: Iron and TIBC-457214 ?LAB: Ferritin-019239 ?LAB: Vitamin D, 22-Eopaedm-739220 ?LAB: CBC/Differential (No Platelet)-822319 ?LAB: Methylmalonic Acid, Serum-876728 ?LAB: Homocyst(e)ine-711290 ?LAB: TSH+Free T4 5.?Encounter for screening f or malignant neoplasm of prostate?LAB: PSA (Reflex To Free) (Serial)-[id number] 6.?Encounter for screening f or osteoporosis?Imaging: DEXA 7.?Insomnia, unspecified? Start Mirtazapine Tablet, 15 MG, 1 tablet at bedtime, Orally, Once a day, 30 days, 30, Refills 3.?? * Immunizations:? Flublok 15887 : 0.5 mL (Route: Intramuscular) given by Natalie Bae on Right Deltoid (Encounter for immunization)??? DTaP (Route: Intramuscular) given by Natalie Bae on Right Deltoid * Procedure Codes:?G0439 ANNUA L WELLNESS VST; PPS SUBSQT [id number] MOST RECENT SYSTOLIC BP < 140MM [id number] MOST RECENT DIASTOLIC BP < 90MM [id number] ELECTROCARDIOGRAM, [id number] Complex e/m visit add [id number] FLUBLOK VACC RIV3 NO [id number] BMI<30 AND >=22 CALC & [id number] NEG SCR D PT NOT ELIG F/U/PLN [id number] NORMAL BP READING DOC F/U NOT RQR * Preventive Medicine:? ??YOUR PREVENTIVE WELLNESS PLAN:?BMI, Height, and Weight:?The Recommended Frequency is:?Annually ?Blood Pressure:?The Recommended Frequency is:?Every 2 years, if BP </= 120/80 mm Hg, Annually, if BP >120-139/80-89 mm Hg ?Vision:?The Recommended Frequency is:?Every 3 years up to age 40, Every 2 years aged 40+ ?Abdominal Aortic Aneurysm:?The Recommended Frequency is:?Once, between the age range of 65-75 and for those who have smoked 100+ cigarettes in lifetime ?Cholesterol Testing:?The Recommended Frequency is:?Regularly beginning at age 20 with risk factors ?Diabetes Screening:?The Recommended Frequency is:?With a sustained BP >/= 135/80 mm Hg ?Colorectal Cancer Screening:?The Recommended Frequency is:?Annually, Fecal Occult Blood Stool (FOBS), Every 5 years, Sigmoidoscopy with FOBS, Every 10 years, Colonoscopy ?Prostate Cancer Screening (Digital Rectal Exam [CHUCKIE]/Prostate Specific Antigen [PSA]):?The Recommended Frequency is:?Annually, age 50 or older ?Sexually Transmitted Diseases (STDs):?The Recommended Frequency is:?As necessary for those with risk factors ?Depression Screening:?The Recommended Frequency is:?As necessary for those with risk factors ?Alcohol Misuse Screening:?The Recommended Frequency is:?As necessary for those with risk factors ?Pneumococcal (Pneumonia) Vaccine:?The Recommended Frequency is:?1-2 doses up to age 64, 1 dose age 65+ ?Influenza (Flu) Vaccine:?The Recommended Frequency is:?Annually ?Other:?____.?Major Risk Factors:?Your Major Risk Factors Include:?Diabetes, Fall risk, Hypertension, Obesity, Smoking use, Other ?Recommendations For Improvement?The recommendations are:?Diet, Exercise, Tobacco cessation, Weight management, Other ?Additional Resources Included:?follow-up instructions, handouts, referrals.?FLU - 05/07/2024 COVID - 2020 TDAP - 05/07/2024 SHINGREX - completed PNEMONIA - NO COLONOSCOPY - NO EYE EXAM - Yes RSV: recommended, Pneumovax DERM - NO This plan was discussed, printed, and handed to patient. * Follow Up:?6 Months-f/up * Images: * Sign off status: Completed true * Provider:?Minal Barclay Date:?05/07/20 24 Generated for Shanel louis/Hermelinda/eTransmitting on:?08/20/2024 08:54 AM EST History and Physical Notes * HPI (History of Present Illness) Category Sub-Category Detail Notes Category Not es Depression Screening PHQ-9 Little inte rest or pleasure in doing things: Not at all Feeling down, depressed, or hopeless: No t at all Trouble falling or staying a sleep, or sleeping too much: More than half the days Feeling tired or having little energy: N early every day Poor appetite or overeating: More than h [facility] the days Feeling bad about yourself o r that you are a failure, or have let yourself or your family down: Not at all Trouble concentrating on thi ngs, such as reading the newspaper or watching television: Not at all Moving or speaking so slowly that other people could have noticed; or the opposite, being so fidgety or restless that you have been moving around a lot more than usual: Not at all Thoughts that you would be b chepe off or of hurting yourself in some way: Not at all Total Score: 7 Interpretation: Mild Depression Medicare Annual Visit Type of Visit -: Subsequent Annual [facility] Visit Language or Communication barrier addressed -: Y es Health Risk Assessment DEMOGRAPHICS: - - How old [age]?: [age] - How would you best describe your ethni city?: Non- White - How would you describe your marital st atus?: - How would you describe your employment status?: Retired - How many children do you have?: more t [place] five RISK ASSESSMENT: - - Do you currently use tobacco products? : No - Have you ever used tobacco products?: Yes, more than two years ago - What type of tobacco do you use or hav e you used?: Cigarettes - (If cigarette smoker) How long have yo u smoked?: >20 years - (If cigarette smoker) How many cigaret todd do you smoke per day?: 11-20 - How many alcoholic beverag es (i.e. 1oz hard liquor, one glass of wine, one bottle of beer) do you drink daily, on average?: None - Have you ever felt the need to cut brittney n on drinking?: No - Have people annoyed you with criticism of your drinking?: No - Do you or have you felt guilty for dri nking?: No - Have you ever felt the nee d to drink first thing in the morning to steady your nerves or to get rid of a hangover?: No - How often do you exercise?: Never - How vigorously can you exercise?: Mini eloisa - How often do you use seatbelts?: Alway s - In the past month, how often have you had sex?: __ - Do you have any significan t difficulties or dysfunction during sex?: No, never - How many partners do you have?: __ - How often do you experience pain with sex?: Never - How often do you use condoms during se x?: Always MENTAL HEALTH ASSESSMENT: - - In the past two weeks, how often have you felt depressed, down or hopeless?: Never - In the past month, how often have you felt anxious or stressed?: Never - What is your average level of daily st ress?: None - In the past two weeks, how often have you felt a lack of pleasure or interest in doing things?: Never - In the past two weeks, how often have you had difficulty falling asleep or episodes of sleeping too long?: Never - In the past two weeks, how often have you had a lack of energy?: Never - In the past two weeks, how often have you had feelings of being better off or thoughts of harming yourself?: Never - Have you ever attempted to harm yourse lf?: No GENERAL HEALTH/PAIN ASSESSMENT: - - In the past month, how often did you e xperience pain?: Never - In the past month, how muc h has pain affected your ability to work?: Not at all - In the past month, how muc h has pain affected your ability to walk?: Not at all - In the past month, how muc h has pain affected your relationship with other people?: Not at all - On a scale of 1-10, how bad would you rate your average daily pain?: No pain - How would you describe the ease with which you can prepare your own food?: Very easy - How would you describe the ease with which you can bathe or clean yourself?: Very easy - How would you describe the ease with w hich you can dress yourself?: Very easy - How hard is it to use the toilet by yo urself?: Not hard at all - How would you describe the ease with which you can do your own shopping?: Very easy - How would you describe the ease with which you can get around your house?: Very easy - How would you describe your ability to pay your bills?: Very good - How would you describe you r ability to plan your daily and monthly budgets?: Very good - How would you describe your ability to do routine housework?: Very good HOME SAFETY/ASSISTANCE: - - Do you feel like you are safe in your current home?: Yes - How many times have you fallen in your home?: Never - How much would you need to change your living circumstances to feel safe?: Not at all - Do you feel that living somewhere else would be good for you?: No - How much help do you feel you need at home?: None at all - How much does your family help with da kamryn or routine chores?: Not at all Immunization Status addressed -: Yes Vision Screening -: Yes, patient sees regular rehab tech or production machine tender Depression Screening -: PHQ9 done Hearing Screening -: No Fall Risk and Home Safety -: Negative, n o falls in the past year, no difficulty walking, or getting out of bed or chair Medication evaluation and reconcilliatio n performed: Yes Vision screening recommended: Yes Literature offered to the patient: Yes Referrals: physical therapy offered for gait balance and mobility evaluation, fall prevention home evauation offered, DEXA screening offered Get Up and Go Evaluation: under 20 secon ds Psychosocial Risks -: No overt psychoso cial risks shown, observed, or mentioned Behavioral Risks -: Patient seems mekhi y well adjusted and no behavorial issues noted Activities of daily living -: Not impaired Cognitive Screening -: No overt cognitiv e deficiency is apparent by direct observation Patient Care Team - No Providers on Record Internal Medicine Mr. Jaclyn perez is a 78-year-old gentleman with COPD former smoker, acid reflux, hypertension here for annual physical examination. Vision he follows with opthalm regularly. He has hearing aids. Memory is intact.He is physically active as much as possible. He gained 5 lbs since last visit. No history of fall. He does not need help with ADLs and IADLs. He sleeps well, appetite is good. No GI or symptoms. He states that he has been feeling fatigued for the past couple of months. He also endorses trouble with initiating and maintaining sleep. Tried Melatonin with no relief. He denies any other active issues or [...] Normal Psychiatry Normal OROPHARYNX Normal SINUSES Normal Telesales Representative
--- OUTSIDE RECORDS SUMMARY | 2024-08-20 08:54 | XMS_ITS ---
Author Organization [facility] Address [address] [place] [id number] Care Team Providers Care Handkerchief Folder Name Role Phone NOE WEST Primary Care Provider REASON FOR VISIT Lab order Encounters Encounter Location Date Provider Diagnosis [facility] [address] [place] [address] 05/08/2024 NOE WEST Plan Of Treatment Next Appt Details Provider Name:NOE WEST , 11/04/2024 01:00:00 PM, [address] [place] [address] [address], [place], [address], Progress Notes * Aarti MÉNDEZBiaOB: [birth year] (78 yo M)Acc No.[id number]:05/08/2024 Patient:?Noe MÉNDEZ :1945???Age:78 Y???Sex:Male Address:[address] [address] * true * Date:? Generated for Ricardoi heriberto/Hermelinda/eTransmitting on:?08/20/2024 08:53 AM EST
--- NOTE | 2024-08-20 09:58 | MHC.AU.HA3 ---
Hearing Instrument Follow-Up- Binaural Date of Visit: 08/20/24 Right Ear: Orestes, Model, Color, Serial Number: Chip Ornelas L70-[id number] SN: [id number] Color: Silver Worthy Lime Kiln Tender Repair Warranty: 01/22/2026 Lime Kiln Tender Loss and Damage Warranty: 01/22/2026 [facility] Service Plan: 11/10/2023 Battery Size: Rechargeable Finishing Tunnel Operator/Slim Tube: 3P Earmold/Dome/CShell/SlimTip:c-shell Type of Wax Guard: CeruStop Dispensed By: [facility] Date of Fittin11/09/2022 Left Ear: Orestes, Model, Color, Serial Number: Chip Ornelas L70-R SN: [id number] Color: Silver Worthy Lime Kiln Tender Repair Warranty: 01/22/2026 Lime Kiln Tender Loss and Damage Warranty: 01/22/2026 [facility] Service Plan: 11/10/2023 Battery Size: Rechargeable Finishing Tunnel Operator/Slim Tube: 3P Earmold/Dome/CShell/SlimTip: c-shell Type of Wax Guard: CeruStop Dispensed By: [facility] Date of Fittin11/09/2022 Follow-Up Summary: Aids dropped off, c/o not turning on. Found both with occluded wax guards. Cleaned aids, cleaned c-shells, replaced wax guards. Listening check positive. Recommendations: Recommendations: Hearing instrument follow-up or maintenance as needed. Diagnosis Code(s): Primary Diagnosis: H90.3 Bilateral Sensorineural Hearing Loss Signature: Provider: Thomas Weaver, [facility]
== END 2024-08-20 08:49 | disposition home or self-care (01) ==
LOC: HO.HAP 08:48
PROVIDERS: Visit Provider Hospitalist
DX: Z46.1 Encounter for fitting and adjustment of hearing aid (principal); H90.3 Sensorineural hearing loss, bilateral
CPT/HCPCS: 92593; 99499

== ENCOUNTER 2025-01-22 14:26 | Outpatient (REF) | payer MEDICARE, MEDICAID, SELFPAY ==
--- OUTSIDE RECORDS SUMMARY | 2025-01-22 14:29 | XMS_ITS | Clinical Summary ---
Author Organization [facility] ity Address [address] [place] [address] Care Team Providers Care Nail Setter Name Role Phone Unavailable Primary Care Provider Unavailabl e Social History Tobacco Use Types Packs/Day Years Used Date Smoking Tobacco: Never Assessed Sex and Gender Information Value Date Recorded Sex Assigned at Not on file Legal Sex Male 4:02 AM EST Gender Identity Not on file Sexual Orientation Not on file Plan of Treatment Health Maintenance Due Date Last Done Comments Pneumococcal Vaccine: 50+ Years (1 of 1 - PCV) 1995 Zoster Vaccines (1 of 2) 1995 RSV Immunization Adult Patients (1 - 1-dose 75+ series) 2020 Cholesterol Screening (Lipid Panel) 09/19/2023 Depression Screening 09/19/2023 Falls Risk Assessment 09/19/2023 Hepatitis C Screening 09/19/2023 Social Influencers of Health Screening 09/19/2023 Medicare Annual Wellness Visit 04/10/2024 04/10/2023 COVID-19 Vaccine ( - 2023-2 5 season) 2024 Influenza Vaccine (Season Ended) 2025 05/16/2020, 06/08/2018 DTaP,Tdap,and Td Vaccines (2 - Td or Tdap) 02/26/2027 02/26/2017 HIB Vaccines Aged Out No longer eligi ble based on patient's age to complete this topic HPV Vaccines Aged Out No longer eligi ble based on patient's age to complete this topic Hepatitis A Vaccines Aged Out No long er eligible based on patient's age to complete this topic Hepatitis B Vaccines Aged Out No long er eligible based on patient's age to complete this topic IPV Vaccines Aged Out No longer eligi ble based on patient's age to complete this topic MMR Vaccines Aged Out No longer eligi ble based on patient's age to complete this topic Meningococcal ACWY Vaccine Aged Out N o longer eligible based on patient's age to complete this topic Meningococcal B Vaccine Aged Out No l onger eligible based on patient's age to complete this topic RSV Immunization Patients Under 20 months Aged Out No longer eligible b ased on patient's age to complete this topic Varicella Vaccines Aged Out No longer eligible based on patient's age to complete this topic
--- NOTE | 2025-01-24 13:17 | MHC.AU.HA3 ---
Hearing Instrument Follow-Up- Binaural Date of Visit: 01/22/25 Right Ear: Orestes, Model, Color, Serial Number: Chip Ornelas L70-R SN: [id number] Color: Silver Worthy Plastic Molder Repair Warranty: 01/22/2026 Plastic Molder Loss and Damage Warranty: 01/22/2026 [facility] Service Plan: 11/10/2023 Battery Size: Rechargeable Cafe Server/Slim Tube: 3P Earmold/Dome/CShell/SlimTip:c-shell Type of Wax Guard: CeruStop Dispensed By: [facility] Date of Fittin11/09/2022 Left Ear: Orestes, Model, Color, Serial Number: Chip Ornelas L70-R SN: [id number] Color: Silver Worthy Plastic Molder Repair Warranty: 01/22/2026 Plastic Molder Loss and Damage Warranty: 01/22/2026 [facility] Service Plan: 11/10/2023 Battery Size: Rechargeable Cafe Server/Slim Tube: 3P Earmold/Dome/CShell/SlimTip: c-shell Type of Wax Guard: CeruStop Dispensed By: [facility] Date of Fittin11/09/2022 Follow-Up Summary: Both aids dropped off , found wax guards clogged. Two (2) cleaned hearing aids, two (2) cleaned earmolds, two (2) changed wax guards. 9949 x 6 units. Listening check positive. Recommendations: Recommendations: Hearing instrument follow-up or maintenance as needed. Diagnosis Code(s): Primary Diagnosis: H90.3 Bilateral Sensorineural Hearing Loss Signature: Provider: Thomas Weaver, [facility]
== END 2025-01-22 14:27 | disposition home or self-care (01) ==
LOC: HO.SH 14:26
DX: Z13.89 Encounter for screening for other disorder (principal)

== ENCOUNTER 2025-01-24 14:43 | Outpatient (REF) | payer MEDICARE, MEDICAID, SELFPAY ==
--- OUTSIDE RECORDS SUMMARY | 2025-01-24 14:47 | XMS_ITS | Clinical Summary ---
Author Organization [facility] ity Address [address] [place] [address] Care Team Providers Care Driller Portable Name Role Phone Unavailable Primary Care Provider [...]
== END 2025-01-24 14:44 | disposition home or self-care (01) ==
LOC: HO.SH 14:43
PROVIDERS: Visit Provider Hospitalist
DX: Z01.118 Encounter for examination of ears and hearing with other abnormal findings (principal); H90.3 Sensorineural hearing loss, bilateral
CPT/HCPCS: 92593; 99499